=== PATIENT | female | born 1960 | race Caucasian/White ===

== ENCOUNTER 2017-10-20 11:36 | Emergency (ER) | payer OTHER ==
[2017-10-20 11:45] VITALS: BP 134/86; PULSE 79; TEMP 97.7; BMI 35.4
--- NOTE | 2017-10-20 12:39 | PDOC ---
History of Present Illness - General Chief Complaint: Injury Stated Complaint: RT ANKLE PAIN Time Seen by Provider: 10/20/17 12:23 History Source: Patient Exam Limitations: No Limitations - History of Present Illness Initial Comments: 10/20/17 13:05 Patient states woke up this morning with swelling and tenderness to her right foot. 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 Denies tripping, no twisting injuries. Has taken no medication for relief. Occurred: reports: this morning, yesterday Severity: reports: mild, moderate Pain Location: reports: lower extremity (right foot ) Method of Injury: Yes: unknown Modifying Factors: improves with: None Associated Symptoms (Fall): denies symptoms Past History - Travel Traveled outside of the country in the last 30 days: No Close contact w/someone who was outside of country & ill: No - Past Medical History Allergies/Adverse Reactions: Allergies Allergy/AdvReac Type Severity Reaction Status Date / Time No Known Allergies Allergy Verified 10/20/17 11:41 Home Medications: Ambulatory Orders Alprazolam [Xanax] 0.25 mg PO TID #7 tablet 10/31/12 Olmesartan Medoxomil [Benicar -] 20 mg PO DAILY 10/31/12 Naproxen [Naprosyn -] 500 mg PO BID PRN #14 tablet 11/19/13 Indomethacin [Indocin -] 50 mg PO TID #15 capsule 09/06/14 predniSONE [Deltasone -] 20 mg PO DAILY #18 tablet 09/06/14 Naproxen [Naprosyn -] 500 mg PO TID #30 tablet 10/20/17 Asthma: Yes COPD: No HTN: Yes - Surgical History Abdominal Surgery: Yes (TUBAL LIGATION) - Suicide/Smoking/Psychosocial Hx Smoking Status: No Smoking History: Never smoked Have you smoked in the past 12 months: No Number of Cigarettes Smoked Daily: 0 Information on smoking cessation initiated: No Hx Alcohol Use: No Drug/Substance Use Hx: No Substance Use Type: None Trauma Specific PMHX - Complaint Specific PMHX Back Injury: No Neck Injury: No Review of Systems - Review of Systems Able to Perform ROS?: Yes Is the patient limited Turkish proficient: Yes Constitutional: Yes: Symptoms Reported, See HPI, Malaise HEENTM: Yes: Symptoms Reported, See HPI Respiratory: No: Symptoms reported Musculoskeletal: Yes: Symptoms Reported, See HPI, Joint Pain, Joint Swelling Integumentary: Yes: Symptoms Reported, See HPI, Bruising All Other Systems: Reviewed and Negative *Physical Exam - Vital Signs Last Vital Signs Temp Pulse Resp BP Pulse Ox 97.7 F 79 16 134/86 100 10/20/17 11:41 10/20/17 11:41 10/20/17 11:41 10/20/17 11:41 10/20/17 11:41 - Physical Exam General Appearance: Yes: Nourished, Appropriately Dressed, Apparent Distress, Mild Distress HEENT: positive: JOHN, Normal ENT Inspection, TMs Normal, Pharynx Normal Neck: negative: Tender Extremity: positive: Normal Capillary Refill. negative: Normal Range of Motion (limited due to pain , good flexion and extension to toes, neurovascular intact. Has tenderness along the lateral aspect of right foot, but no point tenderness to medial or lateral malleolus, negative squeeze test. Ambulatory with mild limp.) Integumentary: positive: Normal Color, Warm Neurologic: positive: component prep operator II-XII NML intact, Fully Oriented, Alert, Normal Mood/ Affect, Normal Response, Motor Strength 5/ ED Treatment Course - RADIOLOGY Radiology Studies Ordered: Category Date Time Status ANKLE & FOOT-RIGHT* [RAD] Stat Radiology 10/20/17 12:28 Ordered Progress Note - Progress Note Progress Note: XRay negative for fx/Dx. Manuel and cast shoe applied to right foot. We'll treat with NSAIDs rest and follow up with Orth O as needed *DC/Admit/Observation/Transfer Diagnosis at time of Disposition: Right foot strain Qualifiers: Encounter type: initial encounter Qualified Code(s): S96.911A - Strain of unspecified muscle and tendon at ankle and foot level, right foot, initial encounter - Discharge Dispostion Disposition: HOME Condition at time of disposition: Stable Decision to Admit order: No - Prescriptions Prescriptions: Naproxen [Naprosyn -] 500 mg PO TID #30 tablet - Referrals Referrals: Rickey Sheppard MD [Primary Care Provider] - Mau Garcia MD [Staff Physician] - - Patient Instructions Printed Discharge Instructions: DI for Foot Pain Additional Instructions: Rest, ice to area on and off for 15 minutes 4-6 times a day Avoid heavy lifting or exercise until pain and swelling is resolved or until further directed Keep area highly elevated to reduce swelling Use splints/Manuel wrap as directed Followup with orthopedist in one to 2 days if not improving, if significantly improved may wait one week for followup with orthopedist May use ibuprofen 2-200 mg tablets every 6 hours as needed for pain - Post Discharge Activity Forms/Work/School Notes: Back to Work
== END 2017-10-20 13:10 | disposition home or self-care (01) ==
LOC: JERFT 11:36
DX: S96.811A Strain of other specified muscles and tendons at ankle and foot level, right foot, initial encounter (principal); X58.XXXA Exposure to other specified factors, initial encounter; Y93.89 Activity, other specified; Y92.89 Other specified places as the place of occurrence of the external cause; Y99.8 Other external cause status
CPT/HCPCS: 73610-TC-RT-FY; 73630-TC-RT-FY; 99281-25

== ENCOUNTER 2018-07-21 18:34 | Observation (INO) | payer OTHER ==
[2018-07-21] MEDS ORDERED: SODIUM CHLORIDE 1,000 ML IV SCH (19:00)
--- NOTE | 2018-07-21 19:01 | PDOC ---
Rapid Medical Evaluation Time Seen by Provider: 07/21/18 18:54 Medical Evaluation: Allergies Allergy/AdvReac Type Severity Reaction Status Date / Time No Known Allergies Allergy Verified 10/20/17 11:41 07/21/18 18:55 I have performed a brief in-person evaluation of this patient. The patient presents with a chief complaint of: L sided facial "numbbess" started at 5 pm Pertinent physical exam findings:no asymmetry I have ordered the following:CT head CBC, CMP, PT/INR, Troponin The patient will proceed to the ED for further evaluation. Discharge Disposition - Diagnosis Numbness - Referrals - Patient Instructions - Post Discharge Activity
--- NOTE | 2018-07-21 19:17 | PDOC ---
Attending Attestation - Resident Resident Name: PrincessDarin - ED Attending Attestation I have performed the following: I have examined & evaluated the patient, The case was reviewed & discussed with the resident, I agree w/resident's findings & plan - HPI HPI: 07/21/18 19:53 Pt has a sensation of formication on her face today; started this evening around 5-6PM and continued to tongue numbness. She states that she is sometimes not compliant with her BP meds (losartan 100; coreg 3.125 and chlorthalidone 25mg) Today however she did take all her meds. BP is slightly high on arrival. She has neck pain. - Physicial Exam PE: 07/22/18 19:50 Agree with resident exam. Pt has no neuro deficits on my exam. No pitting edema clear lungs and heart - Medical Decision Making 07/21/18 19:44 Patient Name: AUSTIN JOHNSON THIS IS A PRELIMINARY REPORT FROM IMAGING MANAGER ASSESSMENT DATE OF SERVICE: 2018-07-21 19:12:34 IMAGES: 133 EXAM: HEAD CT (STROKE) DATE OF EXAM: 2018-07-21 19:12:34 IMAGES: 133 EXAM: HEAD CT (STROKE) History: 57-year-old female rule out CVA/stroke Comparison: None Procedure: CT scan head, dated July 21, 2018 . Axial images obtained followed by coronal and sagittal reconstructions. Study performed unenhanced. Findings: Visualized portion of the paranasal sinuses, mastoid air cells and external ear canals are air filled. The ventricular system is of normal size shape and configuration. There is no evidence of an intra-or extra-axial mass lesion, mass-effect or bleed. Rueda-white differentiation is maintained. No hyperdense vessel sign identified. Corpus callosum and craniocervical junction normal in appearance. Impression: Normal CT scan of the head, unenhanced. Recommendation: If clinical concern for stroke persists, recommend MRI follow- up with diffusion weighted imaging. 07/21/18 19:52 163/80s on the right arml 164/80s on the left arm. However, pt is having neck pain; she complains of a feeling of tingling like "ants crawling on her face" left side of face today that didn't resolve. She was seated watching TV at the time; states that she came to the ER only after the numbness affected her entire tongue. 07/22/18 05:30 Pt vastly improved; she is sleeping comfortably. Heart Score/ECG Review - ECG Intrepretation Rhythm: Regular Rhythm - [place]: Normal - QRS Poor R Wave Progression: No Q Wave Present: No - ST and T Early Repolarization: No Non Specific ST-T Wave changes: Yes - ECG Impressions Normal ECG: Yes Non-specific ST Elevation: No Ischemic Changes: Yes (inferior flat T waves.)
--- NOTE | 2018-07-21 19:29 | PDOC ---
History of Present Illness - General Chief Complaint: CVA/TIA Stated Complaint: L SIDE FACE PAIN AND NUMBNESS Time Seen by Provider: 07/21/18 18:54 History Source: Patient Exam Limitations: No Limitations - History of Present Illness Initial Comments: 07/21/18 19:26 The patient is a 57F with a PMH of HTN and "heart problem" who presents to the ER with sudden onset onset L neck pain and L facial numbness and L leg weakness since 1700 this evening as she was watching TV. She denies any CP, SOB, other numbness, tingling, or weakness. She admits to mild blurry vision in her L eye. She states that she "feels shaky" and has never felt like this in the past. She denies taking any AC. Past History - Past Medical History Allergies/Adverse Reactions: Allergies Allergy/AdvReac Type Severity Reaction Status Date / Time No Known Allergies Allergy Verified 07/21/18 18:55 Home Medications: Ambulatory Orders Carvedilol [Coreg -] 3.125 mg PO BID 07/21/18 Chlorthalidone 25 mg PO DAILY 07/21/18 Cholecalciferol (Vitamin D3) [Vitamin D3 -] 1,000 unit PO DAILY 07/21/18 Losartan Potassium [Cozaar] 100 mg PO DAILY 07/21/18 Asthma: Yes COPD: No HTN: Yes - Surgical History Abdominal Surgery: Yes (TUBAL LIGATION) - Suicide/Smoking/Psychosocial Hx Smoking Status: No Smoking History: Unknown if ever smoked Have you smoked in the past 12 months: No Number of Cigarettes Smoked Daily: 0 Hx Alcohol Use: No Drug/Substance Use Hx: No Substance Use Type: None Review of Systems - Review of Systems Able to Perform ROS?: Yes Comments:: 07/21/18 20:52 GENERAL/CONSTITUTIONAL: No fever or chills. No weakness. HEAD, EYES, EARS, NOSE AND THROAT: No change in vision. No ear pain or discharge. No sore throat. CARDIOVASCULAR: No chest pain, palpitations, or lightheadedness. RESPIRATORY: No cough, wheezing, shortness of breath, or hemoptysis. GASTROINTESTINAL: No nausea, vomiting, diarrhea, constipation, or abdominal pain. GENITOURINARY: No dysuria, frequency, hematuria, or change in urination. MUSCULOSKELETAL: Positive for L neck pain. No joint or muscle swelling or pain. No back pain. SKIN: No rash or lesions. NEUROLOGIC: Positive for facial numbness and LLE weakness. No headache, tingling , or loss of consciousness. Is the patient limited Tongan proficient: No *Physical Exam - Vital Signs Last Vital Signs Temp Pulse Resp BP Pulse Ox 94 H 20 180/104 H 99 07/21/18 18:58 07/21/18 18:58 07/21/18 18:58 07/21/18 18:58 - Physical Exam Comments: 07/21/18 20:54 GENERAL: Well developed, well nourished. Awake and alert. No acute distress. HEENT: Normocephalic, atraumatic. Hearing grossly normal. Moist mucous membranes. PERRLA, EOMI. No conjunctival pallor. Sclera are non-icteric. NECK: Supple. Full ROM. No JVD. CARDIOVASCULAR: Regular rate and rhythm. No murmurs, rubs, or gallops. PULMONARY: No evidence of respiratory distress. Lungs clear to auscultation bilaterally. No wheezing, rales or rhonchi. ABDOMINAL: Soft. Non-tender. Non-distended. No rebound or guarding. GENITOURINARY: No CVA tenderness bilaterally. MUSCULOSKELETAL: Normal range of motion at all joints. No bony deformities or tenderness. EXTREMITIES: No cyanosis. No clubbing. No edema. No calf tenderness or swelling. SKIN: Warm and dry. Normal capillary refill. No rashes. No jaundice. NEUROLOGICAL: Alert, awake, appropriate. Cranial nerves 2-12 intact. Decreased sensation on L face in V2 and V3 distribution. No droop appreciated. L leg is 4/ 5 strength. Otherwise, no deficits to light touch and temperature in face, upper extremities and lower extremities. 5/5 strength in deltoids, biceps, triceps, quadriceps, hamstrings, and gastrocnemius. Normal speech. Gait is mildly ataxia. PSYCHIATRIC: Cooperative. Good eye contact. Appropriate mood and affect. Moderate Sedation - Procedure Monitoring Vital Signs: Procedure Monitoring Vital Signs Temperature Pulse Rate 94 H 07/21/18 18:58 Respiratory Rate 20 07/21/18 18:58 Blood Pressure 180/104 H 07/21/18 18:58 O2 Sat by Pulse Oximetry (%) 99 07/21/18 18:58 ED Treatment Course - LABORATORY CBC & Chemistry Diagram: 07/21/18 19:35 07/21/18 19:35 Medical Decision Making - Medical Decision Making 07/21/18 20:03 The patient is a 57F with a PMH of HTN and "irregular heart beat" not on AC who presents to the ER with acute onset neck pain and L facial numbness with L leg weakness concerning for vertebral artery dissection, hemorrhagic CVA, TIA. Initial CTH negative. CTA head and neck placed to evaluate for dissection and arterial patency. Pending labs and imaging. Pt stable, currently on monitor. EKG NSR, no afib or ischemic changes. 07/21/18 20:55 CTA pending. Pt had resolution of symptoms. 07/21/18 23:02 Radiologist, Dr. Yo, read a negative CTA but has issues with verbalizing a documentation. Will microblog for admission. Pt states that she feels her symptoms returning. Will d/w neurology. 07/21/18 23:29 Neurology advises to give asa for recurrent symptoms and keep pt mildly hypertensive. Pt endorsed to Dr. Naranjo for admission. *DC/Admit/Observation/Transfer Diagnosis at time of Disposition: Numbness, TIA (transient ischemic attack) - Discharge Dispostion Condition at time of disposition: Guarded Decision to Admit order: Yes - Referrals Referrals: Porter Tererll MD [Primary Care Provider] - - Patient Instructions - Post Discharge Activity
[2018-07-21] MEDS ORDERED: LOSARTAN POTASSIUM 50 MG TABLET (FP) PO ONE (19:51)
[2018-07-21] MEDS ORDERED: ACETAMINOPHEN 1000 MG/100 ML VIAL (NON FORMULARY) IVPB ONE (19:52)
[2018-07-21] MEDS ORDERED: ACETAMINOPHEN INJECTION 100 ML IVPB ONE (19:58)
[2018-07-21 20:06] LABS: INR 0.99 (0.83-1.09); PROTHROMBIN TIME (PATIENT) 11.7 SEC (9.7-13.0)
[2018-07-21 20:08] LABS: BASO % 0.3 % (0-2.0); EOS % 3.1 % (0-4.5); HEMATOCRIT 40.8 % (32.4-45.2); LYMPH % 18.6 % (8-40); MCH 32.6 pg (25.7-33.7); MCHC 34.3 g/dl (32.0-36.0); MEAN CELL VOLUME 95.1 fl (80-96); MONO % 7.9 % (3.8-10.2); NEUT % 70.1 % (42.8-82.8); PLATELET COUNT 191 K/MM3 (134-434); RBC 4.29 M/mm3 (3.60-5.2); WHITE BLOOD COUNT 8.5 K/mm3 (4.0-10.0)
[2018-07-21 20:16] LABS: ALBUMIN 3.9 g/dl (3.4-5.0); ALK PHOS 110 U/L (45-117); ANION GAP 4 MMOL/L (8-16); BILIRUBIN,TOTAL 0.3 mg/dL (0.2-1); BLOOD UREA NITROGEN 10 mg/dL (7-18); CALCIUM 8.8 mg/dL (8.5-10.1); CHLORIDE 108 mmol/L (98-107); CHOLESTEROL 188 mg/dL (50-200); CO2 28 mmol/L (21-32); CREATININE 0.9 mg/dL (0.55-1.3); GLUCOSE,RANDOM 134 mg/dL (74-106); HDL CHOLESTEROL 69 mg/dL (40-60); POTASSIUM 3.9 mmol/L (3.5-5.1); SGOT/AST 21 U/L (15-37); SGPT/ALT 26 U/L (13-61); SODIUM 141 mmol/L (136-145); TRIGLYCERIDES 152 mg/dL (0-150)
[2018-07-21 22:07] LABS: URINE APPEARANCE CLEAR; URINE BILIRUBIN NEGATIVE (<2.0 mg/dL); URINE COLOR COLORLESS; URINE GLUCOSE (UA) NEGATIVE (NEGATIVE); URINE KETONE NEGATIVE (NEGATIVE); URINE LEUK ESTERASE NEGATIVE (NEGATIVE); URINE NITRITE NEGATIVE (NEGATIVE); URINE PROTEIN NEGATIVE (NEGATIVE); URINE UROBILINOGEN NEGATIVE mg/dL (0.2-1.0)
[2018-07-21 22:22] LABS: EPI CELLS RARE /HPF (FEW)
[2018-07-21] MEDS ORDERED: ASPIRIN COATED 81 MG TABLET.EC PO ONE (23:15)
[2018-07-21] MEDS ORDERED: ASPIRIN 325 MG TABLET ONE (23:22)
--- NOTE | 2018-07-22 00:54 | HP ---
<Manan Naranjo - Last Filed: 07/22/18 04:29> CHIEF COMPLAINT: L Leg and arm weakness, Left facial paresthesias/numbness PCP: Dr. Porter Terrell HISTORY OF PRESENT ILLNESS: 57 yo female with PMH HTN and a "heart rhythm condition" for which she does not know the name (not on AC) admitted following an acute onset of Left face paresthesia, left neck pain, left arm weakness and left leg weakness. She states she has never had symptoms like this in the past. She notes that earlier today she had an episode of dizziness which she states is very normal for her if she does not eat breakfast which she did not eat this morning. She states she was watching tv around 5 pm when the symptoms started. She first noticed pain in her face which she described as "many needles" and then noticed some weakness in her left arm and left leg. She states that now in the ER she is still having some weakness in her left arm but the leg weakness has completely resolved. She is also still endorsing the facial paresthesia and numbness though much improved from earlier. She denies any fevers, chills, n/v/d. ER course was notable for: (1) CT head negative, CTA brain and neck unremarkable (2) Neurology consulted, ASA, will see in AM (3) HTN to 180/104, given Losartan 50 mg PO, down to 158/66 Recent Travel: none PAST MEDICAL HISTORY: HTN and possibly paroxysmal a-fib? PAST SURGICAL HISTORY: Total Hysterectomy Social History: Smoking: Denies Alcohol: 6 pack or 2 of beer on the weekend, denies use during the week, counseled on alcohol use Drugs: Denies Family History: Allergies No Known Allergies Allergy (Verified 07/21/18 18:55) HOME MEDICATIONS: Home Medications Medication Instructions Recorded Carvedilol [Coreg -] 3.125 mg PO BID 07/21/18 Chlorthalidone 25 mg PO DAILY 07/21/18 Cholecalciferol (Vitamin D3) 1,000 unit PO DAILY 07/21/18 [Vitamin D3 -] Losartan Potassium [Cozaar] 100 mg PO DAILY 07/21/18 REVIEW OF SYSTEMS CONSTITUTIONAL: Absent: fever, chills, diaphoresis, generalized weakness, malaise, loss of appetite, weight change HEENT: Absent: rhinorrhea, nasal congestion, throat pain, throat swelling, difficulty swallowing, mouth swelling, ear pain, eye pain, visual changes CARDIOVASCULAR: Absent: chest pain, syncope, palpitations, irregular heart rate, lightheadedness , peripheral edema RESPIRATORY: Absent: cough, shortness of breath, dyspnea with exertion, orthopnea, wheezing, stridor, hemoptysis GASTROINTESTINAL: Absent: abdominal pain, abdominal distension, nausea, vomiting, diarrhea, constipation, melena, hematochezia GENITOURINARY: Absent: dysuria, frequency, urgency, hesitancy, hematuria, flank pain, genital pain MUSCULOSKELETAL: neck pain Absent: myalgia, arthralgia, joint swelling, back pain, SKIN: Absent: rash, itching, pallor HEMATOLOGIC/IMMUNOLOGIC: Absent: easy bleeding, easy bruising, lymphadenopathy, frequent infections ENDOCRINE: Absent: unexplained weight gain, unexplained weight loss, heat intolerance, cold intolerance NEUROLOGIC: focal weakness or paresthesias Absent: headache, , dizziness, unsteady gait, seizure, mental status changes, bladder or bowel incontinence PSYCHIATRIC: Absent: anxiety, depression, suicidal or homicidal ideation, hallucinations. PHYSICAL EXAMINATION Vital Signs - 24 hr 07/21/18 07/21/18 18:58 21:28 Temperature 98.5 F Pulse Rate 94 H Pulse Rate [ 88 Right Radial] Respiratory 20 19 Rate Blood Pressure 180/104 H Blood Pressure 158/66 [Left Arm] O2 Sat by Pulse 99 Oximetry (%) Gen: A&O, no acute distress HEENT: moist mucus membranes, no exudate Neck: supple, no lymphadenopathy, normal ROM Heart: RRR, no murmurs or rubs Lungs: CTA b/l without any wheezes or rales Abdomen: Soft nontender, normoactive bowel sounds Neuro: decreased sensation in V2 of trigeminal region, otherwise CN II-XII in tact, 5/5 strength and sensation throughout Laboratory Results - last 24 hr 07/21/18 07/21/18 07/21/18 19:35 19:35 19:35 WBC 8.5 RBC 4.29 Hgb 14.0 Hct 40.8 MCV 95.1 MCH 32.6 MCHC 34.3 RDW 14.0 Plt Count 191 MPV 10.0 Absolute Neuts (auto) 6.0 Neutrophils % 70.1 Lymphocytes % 18.6 Monocytes % 7.9 Eosinophils % 3.1 Basophils % 0.3 Nucleated RBC % 0 PT with INR 11.70 INR 0.99 Sodium 141 Potassium 3.9 Chloride 108 H Carbon Dioxide 28 Anion Gap 4 L BUN 10 Creatinine 0.9 Creat Clearance w eGFR > 60 Random Glucose 134 H Calcium 8.8 Total Bilirubin 0.3 AST 21 ALT 26 Alkaline Phosphatase 110 Creatine Kinase 92 Troponin I < 0.02 Total Protein 7.0 Albumin 3.9 Triglycerides 152 H Cholesterol 188 Total LDL Cholesterol 99 HDL Cholesterol 69 H Urine Color Urine Appearance Urine pH Ur Specific [place] Urine Protein Urine Glucose (UA) Urine Ketones Urine Blood Urine Nitrite Urine Bilirubin Urine Urobilinogen Ur Leukocyte Esterase Urine WBC (Auto) Urine RBC (Auto) Ur Epithelial Cells Blood Type Antibody Screen 07/21/18 07/21/18 19:35 21:22 WBC RBC Hgb Hct MCV MCH MCHC RDW Plt Count MPV Absolute Neuts (auto) Neutrophils % Lymphocytes % Monocytes % Eosinophils % Basophils % Nucleated RBC % PT with INR INR Sodium Potassium Chloride Carbon Dioxide Anion Gap BUN Creatinine Creat Clearance w eGFR Random Glucose Calcium Total Bilirubin AST ALT Alkaline Phosphatase Creatine Kinase Troponin I Total Protein Albumin Triglycerides Cholesterol Total LDL Cholesterol HDL Cholesterol Urine Color Colorless Urine Appearance Clear Urine pH 7.0 Ur Specific [place] 1.047 H Urine Protein Negative Urine Glucose (UA) Negative Urine Ketones Negative Urine Blood 1+ H Urine Nitrite Negative Urine Bilirubin Negative Urine Urobilinogen Negative Ur Leukocyte Esterase Negative Urine WBC (Auto) 1 Urine RBC (Auto) 2 Ur Epithelial Cells Rare Blood Type O POSITIVE Antibody Screen Negative ASSESSMENT/PLAN: 57 yo female with PMH HTN and a "heart rhythm condition" for which she does not know the name (not on AC) admitted following an acute onset of Left face paresthesia, left neck pain, left arm weakness and left leg weakness TIA vs CVA -CT head and CTA brain and neck noted -Neurology consulted, full dose ASA and will see in AM -Passed bedside swallow eval -Carotid duplex -ECHO -Telemetry monitoring -ASCVD risk score 3.5% for event in next 10 years, will hold statin for now -B12, ESR, CRP, A1C pending -MRI Brain -Physical Therapy Eval HTN -Continue home Coreg and Losartan -Hold chlorthalidone as to allow some permissive hypertension Abnormal heart rhythm -ECG unchanged from previous in 2014, normal sinus rhythm -suspect possible paroxysmal a-fib, though not on AC -follow echo and tele monitoring Prophylaxis -Early ambulation and SCDs for now -chemical prophylaxis if pt remains in hospital > 48 hours FEN -none -monitor and replete -Na controlled diet Dispo -Telemetry Obs Visit type - Emergency Visit Emergency Visit: Yes ED Registration Date: 07/21/18 Care time: The patient presented to the Emergency Department on the above date and was hospitalized for further evaluation of their emergent condition. - New Patient This patient is new to me today: Yes Date on this admission: 07/22/18 - Critical Care Critical Care patient: No <Rylan Robles - Last Filed: 08/21/18 20:29> Seen and examined; agree with the above aside from what is supplemented by myself in my own documentation. Reviewed all [place] parts of history and exam with resident team and verified independently.
--- NOTE | 2018-07-22 03:04 | PN ---
Teaching Attending Note Name of Resident: Manan Naranjo ATTENDING PHYSICIAN STATEMENT I saw and evaluated the patient. I reviewed the resident's note and discussed the case with the resident. I agree with the resident's findings and plan as documented. SUBJECTIVE: Seen and examined; please see resident note for further historical documentation. Briefly, this is a 57 y/o female with a PMH significant for HTN , stated irregular HR but denies AFib etc. and we do not have old records. She presents to the ER with a CC of LUE and LLE weakness which has resolved and L- facial parasthesias which have improved but not completely resolved at the time of presentation. NIHSS to our assessment is 0. CTA negative for arterial dissection, CT negative for any acute intracranial issues. In between the resident exam and my exam, the only area left with any parasthesias is the medial segment of V2. She has never had these sx before, nothing made them better or worse. Time of onset was 5PM. ER staff talked to communications editor neurologist who recommended keeping BP on the higher side (presented in HTN urgency, she has occasional noncompliance with home meds) 10 sys ROS done and negative aside from HPI PMH, PSH, Social hx, Family hx reviewed Medication reconciliation pending OBJECTIVE: VS, labs, imaging reviewed NAD, AAO, resting in bed NIHSS 0; 5/5 strength with full ROM in all extremities. CN2-12 wnl aside from the issue with some parasthesias to V2 (can still feel fine touch medial side b/ l but it becomes different in sensation on the L than R) RRR s1/2 no mgr Lungs CTAB, w/ sym exp Normal mood, appropriate behavior EKG reviewed CT head shows no acute intracranial pathology with no definite interval change compared to 2013 study. Labs show unremarkable CBC, chemistry. HDL elevated with high TG and LDL near 100. ASSESSMENT AND PLAN: Patient presents with L-facial numbness/tingling which has nearly resolved and LUE/LLE weakness that has resolved completely. NIHSS 0 at this juncture. Admitting to telemetry with a neurology consultation. 1) R/O CVA v. TIA -Place on telemetry, neuro checks and seizure precuations -ASA 81mg PO QD; calculate ASCVD score and initiate statin therapy as dictated -CT head reviewed; final reports CTA head and neck pending. MRI, carotid dopplers, echo pending -Swallow evaluation, consult PT. -Consider other items on the ddx such as neuropathy, etc. Checking B12, ESR, CRP, A1c 2) HTN Urgency -Sx persisted independently of her HTN as they were resolved by the time she got to the hospital. She has intermediate compliance with her home meds which likely caused this. She is hemodynamically stable with improved BP at this point. Plan to continue 2/3 of her home medications (losartan 100, coreg 3.125 ; holding chlorthaladone) and to monitor, titrating as needed and using PRN hydralazine. Can let pressures run slightly higher given the presenting issue as per neurology so restart chlorthaladone when OK with their service 3) History of stated irregular HR -Continue coreg; obtain OP records and monitor tele. Followup echo. Stable at this juncture. FENA -PO fluids -PRN replete -Swallow eval bedside prior to feeding -As tolerated; PT consulted Full Code
[2018-07-22 05:32] LABS: HEMATOCRIT 38.8 % (32.4-45.2); MCH 31.8 pg (25.7-33.7); MCHC 33.5 g/dl (32.0-36.0); MEAN CELL VOLUME 94.8 fl (80-96); MEAN PLT VOLUME 9.6 fl (7.5-11.1); PLATELET COUNT 171 K/MM3 (134-434); RDW 13.9 % (11.6-15.6); WHITE BLOOD COUNT 5.1 K/mm3 (4.0-10.0)
--- NOTE | 2018-07-22 09:11 | CON.NEURO ---
Consult - Alcohol/Substance Use Hx Alcohol Use: No - Smoking History Smoking history: Unknown if ever smoked Have you smoked in the past 12 months: No Aproximately how many cigarettes per day: 0 Home Medications - Allergies Allergies/Adverse Reactions: Allergies Allergy/AdvReac Type Severity Reaction Status Date / Time No Known Allergies Allergy Verified 07/21/18 18:55 - Home Medications Home Medications: Ambulatory Orders Carvedilol [Coreg -] 3.125 mg PO BID 07/21/18 Chlorthalidone 25 mg PO DAILY 07/21/18 Cholecalciferol (Vitamin D3) [Vitamin D3 -] 1,000 unit PO DAILY 07/21/18 Losartan Potassium [Cozaar] 100 mg PO DAILY 07/21/18 Physical Exam-Neuro Vital Signs: Vital Signs Temperature 97.7 F 07/22/18 08:20 Pulse Rate 56 L 07/22/18 08:20 Respiratory Rate 18 07/22/18 08:20 Blood Pressure 142/78 07/22/18 08:20 O2 Sat by Pulse Oximetry (%) 100 07/22/18 07:07 Labs: CBC, BMP 07/22/18 05:16 07/21/18 19:35 INR, PTT INR 0.99 (0.83-1.09) 07/21/18 19:35 Assessment/Plan cc Transient left face numbness and left leg weakness HPI 57 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 She has sudden onset vertigo/dizziness feeling and had tingling sensation on face and leg weakness. She also felt neck pain. Her symptoms partially resolved initially and than came back. Than she has symptoms resolved this morning. She still feel left face numbness. Her initial ct head and cta neck and brain is normal. (3) HTN to 180/104, given Losartan 50 mg PO, down to 158/66 PAST MEDICAL HISTORY: HTN and possibly paroxysmal a-fib? PAST SURGICAL HISTORY: Total Hysterectomy Social History: Smoking: Denies Alcohol: 6 pack or 2 of beer on the weekend, denies use during the week, counseled on alcohol use Drugs: Denies No Known Allergies Allergy (Verified 07/21/18 18:55) HOME MEDICATIONS: Home Medications Medication Instructions Recorded Carvedilol [Coreg -] 3.125 mg PO BID 07/21/18 Chlorthalidone 25 mg PO DAILY 07/21/18 Cholecalciferol (Vitamin D3) 1,000 unit PO DAILY 07/21/18 [Vitamin D3 -] Losartan Potassium [Cozaar] 100 mg PO DAILY 07/21/18 ROS,FH SH reviewed in chart NEUROLOGICAL EXAMINATION Alert oriented x 3, speech is normal, no neck stiffness no sensory loss on left face , no face asymmetry, eomi, pupils reactive, vf normal by confrontation. motor 5/5 all ext sensation is normal reflex are grade 2 ct head is normal cta of neck and cts of brain is unremarkable Assessment 57 year old female history of HTN, ? paroxysmal atrial fibrillation. Patient has symptoms resolved, she was not on aspirin and statin . She has normal CTA, NO LVO. Most likley She has TIA. Plan: Continue aspirin and add statin - mri of brain - cardiac monitoring for paroxysmal atrial fibrillation and possible cardiolgy consult Thanking you so much
[2018-07-22] MEDS: CARVEDILOL 3.125 MG TABLET (FP) PO SCH ×2 (09:43→21:42)
[2018-07-22] MEDS: CHOLECALCIFEROL (VITAMIN D3) 1,000 UNIT TABLET (FP) PO SCH (09:43)
[2018-07-22] MEDS: ASPIRIN COATED 81 MG TABLET.EC PO SCH (09:43)
[2018-07-22] MEDS: LOSARTAN POTASSIUM 50 MG TABLET (FP) PO SCH (09:43)
--- NOTE | 2018-07-22 10:48 | PN ---
Progress Note (short form) - Note Progress Note: continues to have L lower face parathesia. +generalized weakness. vertiginous symptoms have resolved. denies Cp, SOB, fever, chills, N/V/C/D Current Medications Generic Name Dose Route Start Last Admin Trade Name Sue PRN Reason Stop Dose Admin Aspirin 81 mg 07/22/18 10:00 07/22/18 09:43 Ecotrin - PO 81 mg DAILY CHACHO Administration Atorvastatin Calcium 40 mg 07/22/18 22:00 Lipitor - PO HS CHACHO Carvedilol 3.125 mg 07/22/18 10:00 07/22/18 09:43 Coreg - PO 3.125 mg BID CHACHO Administration Cholecalciferol 1,000 unit 07/22/18 10:00 07/22/18 09:43 Vitamin D3 - PO 1,000 unit DAILY CHACHO Administration Losartan Potassium 100 mg 07/22/18 10:00 07/22/18 09:43 Cozaar - PO 100 mg DAILY CHACHO Administration Last Vital Signs Temp Pulse Resp BP Pulse Ox 97.7 F 56 L 18 142/78 100 07/22/18 08:20 07/22/18 08:20 07/22/18 08:20 07/22/18 08:20 07/22/18 07:07 General NAD CV S1 S2 +murmur Lungs CTA B/L no wheezing/rales/rhonchi Neuro decreased sensation bottom half of L face. motor intact. rest of CN intact , negative pronator drift, strength and sensation grossly intact in all 4 extremities. negative dysdakinesia and finger to nose. gait testing deferred CBCD WBC 5.1 K/mm3 (4.0-10.0) 07/22/18 05:16 RBC 4.10 M/mm3 (3.60-5.2) 07/22/18 05:16 Hgb 13.0 GM/dL (10.7-15.3) 07/22/18 05:16 Hct 38.8 % (32.4-45.2) 07/22/18 05:16 MCV 94.8 fl (80-96) 07/22/18 05:16 MCHC 33.5 g/dl (32.0-36.0) 07/22/18 05:16 RDW 13.9 % (11.6-15.6) 07/22/18 05:16 Plt Count 171 K/MM3 (134-434) 07/22/18 05:16 MPV 9.6 fl (7.5-11.1) 07/22/18 05:16 CMP Sodium 142 mmol/L (136-145) 07/22/18 05:16 Potassium 4.5 mmol/L (3.5-5.1) 07/22/18 05:16 Chloride 111 mmol/L (98-107) H 07/22/18 05:16 Carbon Dioxide 22 mmol/L (21-32) 07/22/18 05:16 Anion Gap 9 MMOL/L (8-16) 07/22/18 05:16 BUN 11 mg/dL (7-18) 07/22/18 05:16 Creatinine 0.6 mg/dL (0.55-1.3) 07/22/18 05:16 Creat Clearance w eGFR > 60 (>60) 07/22/18 05:16 Calcium 9.1 mg/dL (8.5-10.1) 07/22/18 05:16 Total Bilirubin 0.3 mg/dL (0.2-1) 07/21/18 19:35 AST 21 U/L (15-37) 07/21/18 19:35 ALT 26 U/L (13-61) 07/21/18 19:35 Alkaline Phosphatase 110 U/L (45-117) 07/21/18 19:35 Total Protein 7.0 g/dl (6.4-8.2) 07/21/18 19:35 Albumin 3.9 g/dl (3.4-5.0) 07/21/18 19:35 A/P 57yo F wtih PMH HTN and some arrhythmia presented to the ER with vertigo like symptoms and facial numbness 1. R/o CVA- facial numbness has persisted. check MRI, carotid doppler and echo. Neuro eval. lipid panel reviewed. started on asa and statin. PT eval. 2. HTN urgency- 180/104. now improved. will need tighter BP control. diuretic on hold. consider starting 2nd agent 3. unknown arrhythmia- was placed on coreg but only taking it 1x/day. will monitor on tele. obtain records from chronic disease manager. ([facility]) 4. +murmur- heard on exam. states she thinks she was told she had one in the past. check echo 5. DVT ppx- EAM 6. case d/w daughter present at bedside. all questions answered. verbalized understanding and agreement with plan Visit type - Emergency Visit Emergency Visit: Yes ED Registration Date: 07/21/18 Care time: The patient presented to the Emergency Department on the above date and was hospitalized for further evaluation of their emergent condition. - New Patient This patient is new to me today: Yes Date on this admission: 07/22/18 - Critical Care Critical Care patient: No - Discharge Referral Referred to [facility] Med P.C.: No
[2018-07-22 11:09] LABS: ANION GAP 9 MMOL/L (8-16); BLOOD UREA NITROGEN 11 mg/dL (7-18); CALCIUM 9.1 mg/dL (8.5-10.1); CHLORIDE 111 mmol/L (98-107); CO2 22 mmol/L (21-32); CREATININE 0.6 mg/dL (0.55-1.3); GLUCOSE,RANDOM 111 mg/dL (74-106); MAGNESIUM 2.2 mg/dL (1.8-2.4); PHOSPHOROUS 4.7 mg/dL (2.5-4.9); POTASSIUM 4.5 mmol/L (3.5-5.1); SODIUM 142 mmol/L (136-145)
--- NOTE | 2018-07-22 14:41 | EKG ---
Test Reason : Blood Pressure : / mmHG Vent. Rate : 088 BPM Atrial Rate : 088 BPM P-R Int : 166 ms QRS Dur : 084 ms QT Int : 358 ms P-R-T Axes : 034 061 052 degrees QTc Int : 433 ms POOR DATA QUALITY, INTERPRETATION MAY BE ADVERSELY AFFECTED NORMAL SINUS RHYTHM NORMAL ECG WHEN COMPARED WITH ECG OF 06-SEP-2014 19:34, VENT. RATE HAS INCREASED BY 29 BPM Confirmed by Chris Wills MD ([id number]) on 07/22/2018 2:40:49 PM Referred By: Confirmed By:Chris Wills MD
[2018-07-22 16:18] VITALS: BMI 38.0
[2018-07-22] MEDS: ATORVASTATIN CA 40 MG TABLET (FP) PO SCH (21:42)
[2018-07-23] MEDS: CHOLECALCIFEROL (VITAMIN D3) 1,000 UNIT TABLET (FP) PO SCH (10:09)
[2018-07-23] MEDS: ASPIRIN COATED 81 MG TABLET.EC PO SCH (10:09)
[2018-07-23] MEDS: CARVEDILOL 3.125 MG TABLET (FP) PO SCH ×2 (10:09→22:17)
[2018-07-23] MEDS: LOSARTAN POTASSIUM 50 MG TABLET (FP) PO SCH (10:09)
--- NOTE | 2018-07-23 10:25 | PN ---
Physical Exam: SUBJECTIVE: No acute events overnight. Pt's residual L-sided CN V2 sensation changes resolved. Pt reports walking to the bathroom without difficulty. Denies any parasthesias, weakness, cP/discomfort, SOB, headaches, f/c/n/v/d/cons. OBJECTIVE: Vital Signs Period Temp Pulse Resp BP Sys/Amaya Pulse Ox Last 24 Hr 97.8 F-98.4 F 72-78 18-18 114-150/50-90 96-98 GENERAL: NAD, awake, alert, and fully oriented, laying in bed HEENT: NC/AT, EOMI, JARAD, sclera anicteric, facial symmetry at rest, MMM NECK: Soft, no TTP along C-spine, no lymphadenopathy LUNGS: CTA bilaterally, no wheezes, no crackles, no accessory muscle use. HEART: RRR, S1, S2 with 2/6 systolic murmur appreciated ABDOMEN: Soft, NT/ND, normoactive bowel sounds, no guarding EXTREMITIES: 2+ DP pulses, warm, well-perfused, no edema. NEUROLOGICAL: oiler bander II through XII grossly intact including facial sensation. Strength 5/5 in shoulder shrug, UExt and LExt regions. Sensation intact throughout. Gait normal. Normal speech. No dysmetria or dysdiadocokinesia. Patellar reflex 2/4 PSYCH: Normal mood, normal affect. SKIN: Warm, dry, no rashes or lesions noted Laboratory Results - last 24 hr 07/22/18 07/22/18 05:16 07:45 Sodium 142 Cancelled Potassium 4.5 Cancelled Chloride 111 H Cancelled Carbon Dioxide 22 Cancelled Anion Gap 9 Cancelled BUN 11 Cancelled Creatinine 0.6 Cancelled Creat Clearance w eGFR > 60 Cancelled Random Glucose 111 H Cancelled Calcium 9.1 Cancelled Phosphorus 4.7 Cancelled Magnesium 2.2 Cancelled C-Reactive Protein 1.0 H Vitamin B12 393 Active Medications Generic Name Dose Route Start Last Admin Trade Name Sue PRN Reason Stop Dose Admin Aspirin 81 mg 07/22/18 10:00 07/23/18 10:09 Ecotrin - PO 81 mg DAILY CHACHO Administration Atorvastatin Calcium 40 mg 07/22/18 22:00 07/22/18 21:42 Lipitor - PO 40 mg HS CHACHO Administration Carvedilol 3.125 mg 07/22/18 10:00 07/23/18 10:09 Coreg - PO 3.125 mg BID CHACHO Administration Cholecalciferol 1,000 unit 07/22/18 10:00 07/23/18 10:09 Vitamin D3 - PO 1,000 unit DAILY CHACHO Administration Losartan Potassium 100 mg 07/22/18 10:00 07/23/18 10:09 Cozaar - PO 100 mg DAILY CHACHO Administration ASSESSMENT/PLAN: TIA; r/o CVA HTN Urgency (resolved) ? Arrythmia New systolic murmur --Symptoms resolved currently --MRI to be done today --Neurology on board; appreciated recommendations --Continue ASA 81mg qdaily --Continue Lipitor 40mg HS --Physical therapy eval noted --BP controlled currently (AM reading 132/70) --Continue Cozaar 100mg qDaily --Low threshold to place home or decreased dose of Chlorathalidone back on schedule --Monitor BP --Continue Coreg 3.125mg BID PO for now --Echocardiogram ordered FEN: Fluids: Encourage PO Electrolyte abnormalities: Previously normalized; no labs for tomorrow Nutrition: Sodium controlled PPX: DVT - Early ambulation; low risk Dispo: Continue tele monitoring; MRI and echocardiogram. Likely d/c with tests allowing tomorrow GOC: Full code Case discussed with Dr. Cole and Dr. Laura Richards, - IM PGY-2 Visit type - Emergency Visit Emergency Visit: Yes ED Registration Date: 07/21/18 Care time: The patient presented to the Emergency Department on the above date and was hospitalized for further evaluation of their emergent condition. - New Patient This patient is new to me today: Yes Date on this admission: 07/23/18 - Critical Care Critical Care patient: No
--- NOTE | 2018-07-23 10:50 | PN ---
Teaching Attending Note Name of Resident: Michael Richards ATTENDING PHYSICIAN STATEMENT I saw and evaluated the patient. I reviewed the resident's note and discussed the case with the resident. I agree with the resident's findings and plan as documented. SUBJECTIVE:facial numbness resolved. denies CP, SOB, fever, chills, N/V/C/D OBJECTIVE: Last Vital Signs Temp Pulse Resp BP Pulse Ox 98.2 F 78 18 150/90 98 07/23/18 09:00 07/23/18 09:00 07/23/18 09:00 07/23/18 09:00 07/23/18 08:00 General NAD Neuro CN II -XII grossly intact, ASSESSMENT AND PLAN: 57yo F wtih PMH HTN and some arrhythmia presented to the ER with vertigo like symptoms and facial numbness 1. R/o CVA- symptoms have resolved. awaiting MRI and echo. rest of workup negative. no events on monitor. neuro on board. asa and statin. PT eval. 2. HTN urgency- 180/104. now improved. will need tighter BP control. diuretic on hold. consider starting 2nd agent 3. unknown arrhythmia- was placed on coreg but only taking it 1x/day. will monitor on tele. obtain records from geophysical prospecting surveyor. ([facility]) 4. +murmur- heard on exam. states she thinks she was told she had one in the past. check echo 5. DVT ppx- EAM 6. anticipate d/c in next 24H pending results
[2018-07-23] MEDS ORDERED: LORazepam 2 MG/ML SDV VIAL IVPUSH SCH (11:16)
--- NOTE | 2018-07-23 11:35 | PN ---
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 She has sudden onset vertigo/dizziness feeling and had tingling sensation on face and leg weakness. She also felt neck pain. Her symptoms partially resolved initially and than came back. Than she has symptoms resolved this morning. She still feel left face numbness. Her initial ct head and cta neck and brain is normal. Patient is feeling better, and carotid ultrasound is normal. Her symptoms resolved and mri of brain is pending. NEUROLOGICAL EXAMINATION Alert oriented x 3, speech is normal, no neck stiffness no sensory loss on left face , no face asymmetry, eomi, pupils reactive, vf normal by confrontation. motor 5/5 all ext sensation is normal reflex are grade 2 ct head is normal cta of neck and cts of brain is unremarkable Assessment 57 year old female history of HTN, ? paroxysmal atrial fibrillation. Patient has symptoms resolved, she was not on aspirin and statin . She has normal CTA, NO LVO. Most likley She has TIA. Plan: mri of brain is pending - continue aspirin and statin - follow up outpatient. Thanking you so much
[2018-07-23] MEDS: ATORVASTATIN CA 40 MG TABLET (FP) PO SCH (22:17)
[2018-07-24] MEDS ORDERED: CHLORTHALIDONE 25 MG TABLET PO SCH (10:00)
--- NOTE | 2018-07-24 10:05 | PN ---
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 She has sudden onset vertigo/dizziness feeling and had tingling sensation on face and leg weakness. She also felt neck pain. Her symptoms partially resolved initially and than came back. Than she has symptoms resolved this morning. She still feel left face numbness. Her initial ct head and cta neck and brain is normal. Patient is feeling better, and carotid ultrasound is normal. Her symptoms resolved and mri of brain is pending. NEUROLOGICAL EXAMINATION Alert oriented x 3, speech is normal, no neck stiffness no sensory loss on left face , no face asymmetry, eomi, pupils reactive, vf normal by confrontation. motor 5/5 all ext sensation is normal reflex are grade 2 ct head is normal cta of neck and cts of brain is unremarkable Assessment 57 year old female history of HTN, ? paroxysmal atrial fibrillation. Patient has symptoms resolved, she was not on aspirin and statin . She has normal CTA, NO LVO. Most likley She has TIA. symptoms resolved and waiting for mri Plan: mri of brain is pending, once mri of brain is done , she should be discharged from neuro point of view. - continue aspirin and statin - follow up outpatient. Thanking you so much
[2018-07-24] MEDS: CARVEDILOL 3.125 MG TABLET (FP) PO SCH (10:54)
[2018-07-24] MEDS: ASPIRIN COATED 81 MG TABLET.EC PO SCH (10:55)
[2018-07-24] MEDS: LOSARTAN POTASSIUM 50 MG TABLET (FP) PO SCH (10:55)
[2018-07-24] MEDS: CHOLECALCIFEROL (VITAMIN D3) 1,000 UNIT TABLET (FP) PO SCH (10:56)
[2018-07-24] MEDS ORDERED: LORazepam 2 MG/ML SDV VIAL IVPUSH SCH (12:15)
--- NOTE | 2018-07-24 13:09 | ECHO ---
Name: AUSTIN JOHNSON Exam:Adult Echocardiogram Study Date: 07/24/2018 11:05 AM Age: 57 yrs Reason For Study: TIA VS CVA Height: 63 in Weight: 210 lb BSA: 2.0 m2 MMode/2D Measurements & Calculations IVSd: 1.3 cm LA dimension: 3.5 cm LVIDd: 3.6 cm ACS: 2.0 cm LVIDs: 2.6 cm LVPWd: 1.3 cm EDV(Teich): 53.1 ml LVOT diam: 1.9 cm ESV(Teich): 24.9 ml Doppler Measurements & Calculations MV E max radha: 76.5 cm/sec TV V2 max: 243.6 cm/sec MV A max radha: 86.9 cm/sec TV max P.8 mmHg MV E/A: 0.88 TV V2 mean: 179.4 cm/sec TV mean P.8 mmHg TV V2 VTI: 73.0 cm Procedure A complete two-dimensional transthoracic echocardiogram was performed (2D, M-mode, Doppler and color flow Doppler). Technically limites study. Left Ventricle The left ventricle is normal in size. There is mild concentric left ventricular hypertrophy. Left lilia tricular systolic function is normal. Ejection Fraction = 55-60%. No regional wall motion abnormalities noted. Right Ventricle The right ventricle is normal size. The right ventricular systolic function is normal. Atria The left atrial size is normal. Right atrial size is normal. Mitral Valve There is mild mitral valve thickening. There is mild mitral annular calcification. There is no mitral regurgitation noted. Tricuspid Valve The tricuspid valve is normal in structure and function. Pulmonary artery systolic pressure is at jessica st 30 mmHg if RA pressure is assumed 3 mmHg. Aortic Valve There is mild aortic sclerosis.;. No aortic regurgitation is present. Pulmonic Valve The pulmonic valve is not well visualized. Mild pulmonic valvular regurgitation. Great Vessels The aortic root is normal size. Pericardium/Pleura There is no pericardial effusion. Interpretation Summary Technically limites study The left ventricle is normal in size. There is mild concentric left ventricular hypertrophy. Left ventricular systolic function is normal. No regional wall motion abnormalities noted. Ejection Fraction = 55-60%. The right ventricular systolic function is normal. The left atrial size is normal. Right atrial size is normal. There is mild mitral valve thickening. There is mild mitral annular calcification. There is no mitral regurgitation noted. Pulmonary artery systolic pressure is at least 30 mmHg if RA pressure is assumed 3 mmHg There is mild aortic sclerosis. Mild pulmonic valvular regurgitation. There is no pericardial effusion. Previous study is not available for comparison Stanley Graf MD 07/24/2018 01:08 PM
--- NOTE | 2018-07-24 13:17 | PN ---
Teaching Attending Note Name of Resident: Chris Garay ATTENDING PHYSICIAN STATEMENT I saw and evaluated the patient. I reviewed the resident's note and discussed the case with the resident. I agree with the resident's findings and plan as documented. SUBJECTIVE:asymptomatic. denies CP, SOB, fever, chills, numbness/tingling OBJECTIVE: Last Vital Signs Temp Pulse Resp BP Pulse Ox 98 F 71 18 138/68 99 07/24/18 09:00 07/24/18 09:00 07/24/18 09:00 07/24/18 09:00 07/24/18 04:00 General NAD ASSESSMENT AND PLAN: 57yo F wtih PMH HTN and some arrhythmia presented to the ER with vertigo like symptoms and facial numbness 1. R/o CVA- symptoms have resolved. unable to tolerate MRI yesterday and will attempt again with BZD. awaiting MRI and echo. rest of workup negative. no events on monitor. neuro on board. asa and statin. PT eval. 2. HTN urgency-improved but above goal. will re-start chlorathiadone which is home med. close BP monitoring. 3. unknown arrhythmia- none appreaciated on tele moniotring. cont coreg. 4. +murmur- heard on exam. states she thinks she was told she had one in the past. check echo 5. DVT ppx- EAM 6. d/c home pending results of tests mentioned above. spoke with daughter present at bedside. all questions answered. verbalized understanding and agreement
--- NOTE | 2018-07-24 16:20 | DS ---
Physical Exam: SUBJECTIVE: Patient seen and examined at bedside. no acute events overnight. Pt reports walking to the bathroom without difficulty. denies fever, chills, cp, sob, limb weakness, speech slurr, n/v/d. Family updated and aware of dc plan and instructions OBJECTIVE: Vital Signs Period Temp Pulse Resp BP Sys/Amaya Pulse Ox Last 24 Hr 97.8 F-98.4 F 62-78 18-18 123-154/60-86 99-99 PHYSICAL EXAM GENERAL: NAD, AOX3 HEENT: NC/AT, EOMI, JARAD, sclera anicteric, facial symmetry at rest, MMM NECK: Soft, no TTP along C-spine, no lymphadenopathy LUNGS: CTAB HEART: RRR, S1, S2 ABDOMEN: Soft, NT/ND, normoactive bowel sounds, no guarding EXTREMITIES: 2+ DP pulses, warm, well-perfused, no edema. NEUROLOGICAL: supervisor poultry farm II through XII grossly intact including facial sensation. Strength 5/5 in shoulder shrug, UExt and LExt regions. Sensation intact throughout. Gait normal. Normal speech. No dysmetria or dysdiadocokinesia. Patellar reflex 2/4 PSYCH: Normal mood, normal affect. SKIN: Warm, dry, no rashes or lesions noted LABS HOSPITAL COURSE: Date of Admission:07/21/18 Date of Discharge: 07/24/18 57 yo female with PMH HTN and a "heart rhythm condition" for which she does not know the name (not on AC) admitted following an acute onset of Left face paresthesia, left neck pain, left arm weakness and left leg weakness Pt admitted for CVA r/o and found w/ HTN urgency. Neurology consulted. CT head negative, CTA brain and neck unremarkable. carotid ultrasound is normal. Passed bedside swallow eval. MRI showed no evidence of abnormal restricted diffusion in the brain to suggest acute or subacute infarction. Mild supratentorial subcortical white matter microangiopathic ischemic changes, gliosis. Echo w/ mild conc LV hypertrophy, EF 55-66%, mild aortic sclerosis, PA sys 30, RA 3. pt started on ASA/statin and to f/u w/ neuro outpt. B12 nl, A1C 6 HTN urgency improved w/ home Coreg and Losartan. chlorthalidone was initially held as to allow some permissive hypertension, but was restarted at discharge Abnormal heart rhythm: no events on monitor -ECG unchanged from previous in 2014, NSR -suspect possible paroxysmal a-fib, though not on AC cont coreg Family updated and aware of dc plan and instructions pt stable and ready for dc. Minutes to complete discharge: 37 Discharge Summary Reason For Visit: TRANSIENT ISCHEMIC ATTACK Current Active Problems Numbness (Acute) TIA (transient ischemic attack) (Acute) Condition: Guarded - Instructions Diet, Activity, Other Instructions: YOu were observed in the hospital due to your symptoms. All workup was negative for you having a stroke But you do have signs of long standing hypertension It is very important that you control your blood pressure with goal being <120/ 80. You can get a blood pressure cuff and check your blood pressure daily or if you are having symptoms (headache, lightheadedness or blurred vision) to see what your blood pressure is. Keep a log of your blood pressure and bring it with you to your next doctor appointment. Eat a low salt diet Continue your blood pressure medications You have been started on baby aspirin and a cholesterol medication (Lipitor) which should be taken daily Follow up with your primary care doctor in 1 week Follow up with neurology in 2 weeks. Information on the one you saw here has been provided Return to the ER if your symptoms return or if you develop chest pain or shortness of breath. Referrals: Porter Terrell MD [Primary Care Provider] - - Home Medications Comprehensive Discharge Medication List: Ambulatory Orders Carvedilol [Coreg -] 3.125 mg PO BID 07/21/18 Chlorthalidone 25 mg PO DAILY 07/21/18 Cholecalciferol (Vitamin D3) [Vitamin D3 -] 1,000 unit PO DAILY 07/21/18 Losartan Potassium [Cozaar] 100 mg PO DAILY 07/21/18 This patient is new to me today: Yes Date on this admission: 07/24/18 Emergency Visit: Yes ED Registration Date: 07/21/18 Care time: The patient presented to the Emergency Department on the above date and was hospitalized for further evaluation of their emergent condition. Critical Care patient: No - Discharge Referral Referred to [facility] Med P.C.: No
[2018-07-24 17:23] VITALS: BP 144/73; PULSE 72; TEMP 98
== END 2018-07-24 18:51 | disposition home or self-care (01) ==
LOC: JER 18:34 → JERBED 21:54 → J4W 07-22 15:31
PROVIDERS: ADMIT Internal Medicine; ATTEND Internal Medicine
PROC: 3E033NZ Introduction of Analgesics, Hypnotics, Sedatives into Peripheral Vein, Percutaneous Approach (ICD-10-PCS; principal; 2018-07-21)
PROC: 3E0337Z Introduction of Electrolytic and Water Balance Substance into Peripheral Vein, Percutaneous Approach (ICD-10-PCS; 2018-07-21)
PROC: 3E033GC Introduction of Other Therapeutic Substance into Peripheral Vein, Percutaneous Approach (ICD-10-PCS; 2018-07-21)
DX: G45.9 Transient cerebral ischemic attack, unspecified (principal); I16.0 Hypertensive urgency; R20.0 Anesthesia of skin; I49.9 Cardiac arrhythmia, unspecified; R53.1 Weakness; R01.1 Cardiac murmur, unspecified
CPT/HCPCS: 36415; 70450-TC; 70496-TC; 70498-TC; 70551-TC; 80048; 80053; 81003; 81015; 82465; 82550; 82607; 83036; 83718; 83721; 83735; 84100; 84478; 84484; 85025; 85027; 85610; 85651; 86140; 86850; 86900; 86901; 93005; 93010; 93306-TC; 93880-TC; 99285-25; G0378; J0131; J7030

== ENCOUNTER 2018-11-28 02:56 | Inpatient (IN) | payer OTHER ==
[2018-11-28] MEDS ORDERED: morphine CARPU-JECT 4 MG/1 ML DISP.SYRIN IVPUSH ONE (03:41)
[2018-11-28] MEDS ORDERED: SODIUM CHLORIDE 0.9% 500 ML INFUS.BAG IV ONE (03:55)
--- NOTE | 2018-11-28 03:55 | PDOC ---
History of Present Illness - General Chief Complaint: Pain, Acute Stated Complaint: PAIN Time Seen by Provider: 11/28/18 03:45 History Source: Patient - History of Present Illness Initial Comments: 11/28/18 04:31 The patient is a 57 year old female with a PMH of TIA who presents with acute onset of abdominal pain. Pain started at 10 p.m. yesterday evening and is sharp , especially prominent in her epigastric and RUQ and associated with multiple episodes of emesis. No fevers/chills. Last BM around 6 or 7 p.m. yesterday evening and was watery, non-bloody. Last PO intake at 7 p.m. No prior h/o abdominal surgeries. NKDA PMD: Dr. Porter Terrell Past History - Past Medical History Allergies/Adverse Reactions: Allergies Allergy/AdvReac Type Severity Reaction Status Date / Time No Known Allergies Allergy Verified 11/28/18 04:02 Home Medications: Ambulatory Orders Carvedilol [Coreg -] 3.125 mg PO BID 07/21/18 Chlorthalidone 25 mg PO DAILY 07/21/18 Cholecalciferol (Vitamin D3) [Vitamin D -] 1,000 unit PO DAILY 07/21/18 Losartan Potassium [Cozaar] 100 mg PO DAILY 07/21/18 Aspirin Coated [Ecotrin -] 81 mg PO DAILY #30 tablet.ec 07/24/18 Atorvastatin Ca [Lipitor] 40 mg PO HS #30 tablet 07/24/18 Asthma: Yes COPD: No HTN: Yes - Surgical History Abdominal Surgery: Yes (TUBAL LIGATION) - Suicide/Smoking/Psychosocial Hx Smoking Status: No Smoking History: Never smoked Have you smoked in the past 12 months: No Number of Cigarettes Smoked Daily: 0 Hx Alcohol Use: Yes (social) Drug/Substance Use Hx: No Substance Use Type: None Hx Substance Use Treatment: No Review of Systems - Review of Systems Constitutional: No: Chills, Fever Respiratory: No: Cough, Shortness of Breath Cardiac (ROS): No: Chest Pain, Lightheadedness, Palpitations, Syncope ABD/GI: Yes: Nausea, Vomiting, Abdominal cramping. No: Constipated, Diarrhea *Physical Exam - Physical Exam General Appearance: Yes: Nourished, Appropriately Dressed HEENT: positive: Normal Voice, Hearing Grossly Normal Neck: positive: Trachea midline, Supple Respiratory/Chest: positive: Lungs Clear, Normal Breath Sounds Cardiovascular: positive: Regular Rate, S1, S2 Vascular Pulses: Dorsalis-Pedis (R): 2+, Doralis-Pedis (L): 2+ Gastrointestinal/Abdominal: positive: Other (Epigastric and RUQ TTP w/o peritoneal sign, (+) Gerardo's sign) Musculoskeletal: negative: CVA Tenderness (R), CVA Tenderness (L) Extremity: positive: Normal Capillary Refill, Normal Inspection Integumentary: positive: Normal Color, Dry, Warm Neurologic: positive: marketing graphics specialist II-XII NML intact, Fully Oriented, Alert ED Treatment Course - LABORATORY CBC & Chemistry Diagram: 11/28/18 04:05 11/28/18 04:05 Medical Decision Making - Medical Decision Making 11/28/18 04:32 57 y/o female with acute onset of abdominal pain. Hypertensive 172/66, other VS unremarkable Epigastric and RUQ TTP w/o peritoneal sign, (+) Gerardo's sign FRONTAL DIAGNOSIS: cholecystitis/bilary colic, early appendicitis, pancreatitis , colitis, gastroenteritis, also consider but less likely SBO, diverticulitis, mesenteric ischemia, mesenteric adenitis, r/o ACS PLAN: CTAP (U/S unavailable overnight), Lipase, Basic Labs, Troponin, EKG, CXR. Symptomatic care with Morphine and IV hydration. 11/28/18 04:48 Bedside U/S shows cholelithiasis w/AGBW thickening; (+) sonographic Gerardo's sign Patient symptomatically improved s/p Morphine Lipase wnL CBC, CMP unremarkable including normal bilirubin, LFT's 11/28/18 06:43 CT shows cholelithiasis, gallbladder distention, equivocal for acute inflammation; will obtain RUQ ultrasound 11/28/18 07:04 Patient signed out to Dr. Teixeira (Resident) and Dr. Hernandez (Attending) @ 0730 Pending orders: Coags, T/S, Dilaudid, Zofran, additional 1 L IVNS and RUQ U/S *DC/Admit/Observation/Transfer Diagnosis at time of Disposition: Gallbladder disease - Discharge Dispostion Condition at time of disposition: Fair Decision to Admit order: Yes - Referrals Referrals: Porter Terrell MD [Primary Care Provider] - - Patient Instructions - Post Discharge Activity
--- NOTE | 2018-11-28 03:57 | PDOC ---
Attending Attestation - Resident Resident Name: Emi Mejia - ED Attending Attestation I have performed the following: I have examined & evaluated the patient, The case was reviewed & discussed with the resident, I agree w/resident's findings & plan - HPI HPI: 11/28/18 06:51 57-year-old female with right upper quadrant pain - Physicial Exam PE: 11/28/18 06:54 agree with resident's exam - Medical Decision Making 11/28/18 06:54 57-year-old female with right upper quadrant pain CT scan suggests gallbladder disease Right upper quadrant ultrasound ordered Lab for admission to medical service, Unasyn 3 g IV piggyback as well as narcotics for pain
[2018-11-28] MEDS ORDERED: MAG HYDROX/AL HYDROX/SIMETH 30 ML UNIT-DOSE CUP PO ONE (03:59)
[2018-11-28] MEDS ORDERED: METOCLOPRAMIDE HCL INJECTION 10 MG/2 ML VIAL IVPUSH ONE (03:59)
[2018-11-28] MEDS ORDERED: METOCLOPRAMIDE HCL INJECTION 10 MG/2 ML VIAL ONE (04:16)
[2018-11-28] MEDS ORDERED: morphine SULFATE 4 MG/ML VIAL ONE (04:17)
[2018-11-28] MEDS ORDERED: MAG HYDROX/AL HYDROX/SIMETH 30 ML UNIT-DOSE CUP ONE (04:17)
[2018-11-28 04:22] LABS: BASO % 0.5 % (0-2.0); EOS % 1.5 % (0-4.5); HEMATOCRIT 38.5 % (32.4-45.2); HEMOGLOBIN 13.3 GM/dL (10.7-15.3); LYMPH % 13.4 % (8-40); MCH 32.8 pg (25.7-33.7); MCHC 34.7 g/dl (32.0-36.0); MEAN CELL VOLUME 94.5 fl (80-96); MEAN PLT VOLUME 9.6 fl (7.5-11.1); MONO % 5.7 % (3.8-10.2); NEUT % 78.9 % (42.8-82.8); PLATELET COUNT 179 K/MM3 (134-434); RBC 4.07 M/mm3 (3.60-5.2); RDW 13.6 % (11.6-15.6); WHITE BLOOD COUNT 7.5 K/mm3 (4.0-10.0)
[2018-11-28 04:43] LABS: ALBUMIN 3.7 g/dl (3.4-5.0); BILIRUBIN,TOTAL 0.4 mg/dL (0.2-1); BLOOD UREA NITROGEN 12.9 mg/dL (7-18); CALCIUM 8.6 mg/dL (8.5-10.1); CREATININE 0.7 mg/dL (0.55-1.3); POTASSIUM 3.8 mmol/L (3.5-5.1); TOT PROT 6.8 g/dl (6.4-8.2)
[2018-11-28] MEDS ORDERED: AMPICILLIN NA/SULBACTAM NA 1.5 GM in SODIUM CHLORIDE 100 ML IVPB ONE (06:52)
[2018-11-28] MEDS ORDERED: HYDROmorphone HCL CARPU-JECT 2 MG/1 ML DISP.SYRIN IVPUSH ONE (06:54)
[2018-11-28] MEDS ORDERED: AMPICILLIN NA/SULBACTAM NA 3 GM in SODIUM CHLORIDE 100 ML IVPB ONE (06:55)
[2018-11-28] MEDS ORDERED: ONDANSETRON 4 MG/2 ML VIAL IVPUSH ONE (07:02)
[2018-11-28] MEDS ORDERED: SODIUM CHLORIDE 1,000 ML IV STA (07:02)
[2018-11-28 07:59] LABS: INR 1.03 (0.83-1.09); PROTHROMBIN TIME (PATIENT) 12.2 SEC (9.7-13.0)
[2018-11-28 08:02] LABS: ACTIVATED PTT 30.3 SECONDS (25.2-36.5)
[2018-11-28] MEDS ORDERED: ONDANSETRON 4 MG/2 ML VIAL ONE (08:23)
--- NOTE | 2018-11-28 09:00 | PDOC ---
*Physical Exam - Vital Signs Last Vital Signs Temp Pulse Resp BP Pulse Ox 98.4 F 66 20 172/66 H 97 11/28/18 02:58 11/28/18 02:58 11/28/18 02:58 11/28/18 02:58 11/28/18 02:58 - Physical Exam Comments: 11/28/18 08:59 Patient's care was endorsed to me by Dr. Mejia at the end of her shift. Patient is a 57 YOF with abdominal pain, nausea, POCUS c/f calculous cholecystitis, abdominal CT reflects large stone within GB, pending formal US prior to admission. She has ongoing symptoms at the time of sign-out to me. Repeat medications were ordered at that time. ED Treatment Course - LABORATORY CBC & Chemistry Diagram: 11/28/18 04:05 11/28/18 04:05 - ADDITIONAL ORDERS Additional order review: Laboratory Results 11/28/18 11/28/18 11/28/18 07:28 07:28 04:05 PT with INR 12.20 INR 1.03 PTT (Actin FS) 30.3 Sodium Potassium Chloride Carbon Dioxide Anion Gap BUN Creatinine Est GFR (CKD-EPI)AfAm Est GFR (CKD-EPI)NonAf Random Glucose Calcium Total Bilirubin AST ALT Alkaline Phosphatase Creatine Kinase 136 Troponin I < 0.02 Total Protein Albumin Lipase Blood Type O POSITIVE Antibody Screen Negative 11/28/18 04:05 PT with INR INR PTT (Actin FS) Sodium 141 Potassium 3.8 Chloride 108 H Carbon Dioxide 27 Anion Gap 7 L BUN 12.9 Creatinine 0.7 Est GFR (CKD-EPI)AfAm 112.26 Est GFR (CKD-EPI)NonAf 96.86 Random Glucose 133 H Calcium 8.6 Total Bilirubin 0.4 AST 17 ALT 22 Alkaline Phosphatase 101 Creatine Kinase Troponin I Total Protein 6.8 Albumin 3.7 Lipase 82 Blood Type Antibody Screen 11/28/18 04:05 RBC 4.07 MCV 94.5 MCHC 34.7 RDW 13.6 MPV 9.6 Neutrophils % 78.9 Lymphocytes % 13.4 D Monocytes % 5.7 Eosinophils % 1.5 Basophils % 0.5 - Medications Given in the ED: ED Medications Discontinued Medications Generic Name Dose Route Start Last Admin Trade Name Freq PRN Reason Stop Dose Admin Al Hydroxide/Mg Hydroxide 30 ml 11/28/18 03:59 11/28/18 04:26 Mylanta Oral Suspension - PO 11/28/18 04:00 30 ml ONCE ONE Administration Ampicillin Sodium/Sulbactam 100 mls @ 200 mls/hr 11/28/18 06:52 11/28/18 07: 08 Sodium 1.5 gm/ Sodium Chloride IVPB 11/28/18 07:21 Not Given ONCE ONE Sodium Chloride 1,000 mls @ 1,000 mls/hr 11/28/18 07:02 11/28/18 08:24 Normal Saline - IV 11/28/18 08:01 1,000 mls/hr ASDIR STA Administration Metoclopramide HCl 10 mg 11/28/18 03:59 11/28/18 04:27 Reglan Injection - IVPUSH 11/28/18 04:00 10 mg ONCE ONE Administration Morphine Sulfate 4 mg 11/28/18 03:41 11/28/18 04:26 Morphine Injection - IVPUSH 11/28/18 03:42 4 mg ONCE ONE Administration Ondansetron HCl 4 mg 11/28/18 07:02 11/28/18 08:24 Zofran Injection IVPUSH 11/28/18 07:03 4 mg ONCE ONE Administration Sodium Chloride 1,000 ml 11/28/18 03:55 11/28/18 04:26 Normal Saline - IV 11/28/18 03:56 1,000 ml ONCE ONE Administration Medical Decision Making - Medical Decision Making 11/28/18 09:29 RUQ US concerning for calculous cholecystitis. Surgery called but the on-call provider is in the OR. The Pt is unsafe for discharge at this time. They require further hospital observation, workup, and treatment. She has already received antibiotics (Unasyn). Microblog sent to [facility] for admission. Blank decision to admit order was already placed before shift change. 11/28/18 09:34 I spoke with [facility]un Alvarez, coming to see the patient, admitted to Dr. Sousa. *DC/Admit/Observation/Transfer Diagnosis at time of Disposition: Gallbladder disease - Discharge Dispostion Condition at time of disposition: Fair - Referrals Referrals: Porter Terrell MD [Primary Care Provider] - - Patient Instructions - Post Discharge Activity
[2018-11-28 09:34] LABS: PH,URINE 6.5 (5.0-8.0); URINE APPEARANCE CLEAR; URINE BILIRUBIN NEGATIVE (NEGATIVE); URINE COLOR YELLOW; URINE GLUCOSE (UA) NEGATIVE (NEGATIVE); URINE KETONE NEGATIVE (NEGATIVE); URINE LEUK ESTERASE NEGATIVE (NEGATIVE); URINE NITRITE NEGATIVE (NEGATIVE); URINE PROTEIN NEGATIVE (NEGATIVE); URINE UROBILINOGEN 0.2 mg/dL (0.2-1.0)
--- NOTE | 2018-11-28 09:46 | HP ---
Admitting History and Physical - Primary Care Physician PCP: Porter Terrell - Admission Chief Complaint: abdominal pain to RUQ History of Present Illness: The patient is a 57 year old female with a PMH of TIA who presents with acute onset of abdominal pain. Pain started at 10 p.m. yesterday evening and is sharp , especially prominent in her epigastric and RUQ and associated with multiple episodes of emesis. No fevers/chills. Last BM around 6 or 7 p.m. yesterday evening and was watery, non-bloody. Last PO intake at 7 p.m. No prior h/o abdominal surgeries. 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 Cardiovascular: Yes: HTN, Hyperlipdemia Hepatobiliary: Yes: Cholelithiasis Reproductive: Yes: Other - Past Surgical History Past Surgical History: Yes: Tubal Ligation (20 years ago) - Smoking History Smoking history: Never smoked Have you smoked in the past 12 months: No Aproximately how many cigarettes per day: 0 - Alcohol/Substance Use Hx Alcohol Use: Yes (social) - Social History Usual Living Arrangement: Yes: With Spouse ADL: Independent History of Recent Travel: No Home Medications - Allergies Allergies/Adverse Reactions: Allergies Allergy/AdvReac Type Severity Reaction Status Date / Time No Known Allergies Allergy Verified 11/28/18 04:02 - Home Medications Home Medications: Ambulatory Orders Carvedilol [Coreg -] 3.125 mg PO BID 07/21/18 Chlorthalidone 25 mg PO DAILY 07/21/18 Cholecalciferol (Vitamin D3) [Vitamin D -] 1,000 unit PO DAILY 07/21/18 Losartan Potassium [Cozaar] 100 mg PO DAILY 07/21/18 Aspirin Coated [Ecotrin -] 81 mg PO DAILY #30 tablet.ec 07/24/18 Atorvastatin Ca [Lipitor] 40 mg PO HS #30 tablet 07/24/18 Family Disease History - Family Disease History Family History: Unremarkable Review of Systems - Review of Systems Constitutional: reports: Fever (subjective at home) Eyes: reports: No Symptoms HENT: reports: No Symptoms Neck: reports: No Symptoms Cardiovascular: reports: No Symptoms Respiratory: reports: No Symptoms Gastrointestinal: reports: Abdominal Pain (RUQ to mid-epigastric), Melena, Vomiting (bilious), Other (BM 2 days ago) Genitourinary: reports: No Symptoms Breasts: reports: No Symptoms Reported Musculoskeletal: reports: No Symptoms Integumentary: reports: No Symptoms Neurological: reports: No Symptoms Endocrine: reports: No Symptoms Hematology/Lymphatic: reports: No Symptoms Psychiatric: reports: No Symptoms Pain Intensity: 6 (10 on admission and overnight) Physical Examination Vital Signs: Vital Signs Temperature 98.1 F 11/28/18 09:33 Pulse Rate 71 11/28/18 09:33 Respiratory Rate 16 11/28/18 09:33 Blood Pressure 127/80 11/28/18 09:33 O2 Sat by Pulse Oximetry (%) 98 11/28/18 09:33 Constitutional: Yes: Well Nourished, No Distress, Calm, Mild Distress ( secondary to pain) Eyes: Yes: WNL, Conjunctiva Clear, EOM Intact HENT: Yes: WNL, Atraumatic, Normocephalic Neck: Yes: WNL, Supple, Trachea Midline Cardiovascular: Yes: WNL, Regular Rate and Rhythm Respiratory: Yes: WNL, Regular, CTA Bilaterally Gastrointestinal: Yes: Normal Bowel Sounds, Abdomen, Obese, Tenderness (to RUQ) , Tenderness, Epigastrium ...Rectal Exam: Yes: Deferred Renal/: Yes: WNL Breast(s): Yes: WNL Musculoskeletal: Yes: WNL Extremities: Yes: WNL Edema: No Peripheral Pulses WNL: Yes Integumentary: Yes: WNL Neurological: Yes: WNL, Alert, Oriented ...Motor Strength: WNL Psychiatric: Yes: WNL, Alert, Oriented Labs: CBC, BMP 11/28/18 04:05 11/28/18 04:05 Imaging - Results Cat Scan: Report Reviewed ( Impression: Abnormal gallbladder with stones including a Stone in neck. No definitive secondary signs of cholecystitis. Additional evaluation is needed as well as clinical correlation. Hepatosplenomegaly with a significantly fatty liver and pericholecystic sparing. ) Problem List - Problems (1) Prophylactic measure Assessment/Plan: FEN NPO for possible OR May resume post surgical a low fat/cholesterol diet nutrition counseling IVF when NPO monitor electrolytes Code(s): Z29.9 - ENCOUNTER FOR PROPHYLACTIC MEASURES, UNSPECIFIED (2) Gallbladder disease Code(s): K82.9 - DISEASE OF GALLBLADDER, UNSPECIFIED (3) Hypertension Assessment/Plan: hypertensive on admission secondary to pain continue home doses of coreg and losartan Code(s): I10 - ESSENTIAL (PRIMARY) HYPERTENSION (4) Hyperlipidemia Assessment/Plan: maintain home dose of lipitor Code(s): E78.5 - HYPERLIPIDEMIA, UNSPECIFIED (5) Acalculous cholecystitis Assessment/Plan: large stone seen on POCUS in GB surgery consult by Dr Reese plan for OR tomorrow for cholecyctectomy NPO after mn Code(s): K81.9 - CHOLECYSTITIS, UNSPECIFIED Assessment/Plan Medical Decision Making - Medical Decision Making 11/28/18 09:29 RUQ US concerning for calculous cholecystitis. Surgery called but the on-call provider is in the OR. The Pt is unsafe for discharge at this time. They require further hospital observation, workup, and treatment. She has already received antibiotics (Unasyn). Microblog sent to Jaun for admission. Blank decision to admit order was already placed before shift change. 11/28/18 09:34 I spoke with Jaun Alvarez, coming to see the patient, admitted to Dr. Sousa. Visit type - Emergency Visit Emergency Visit: Yes ED Registration Date: 11/28/18 Care time: The patient presented to the Emergency Department on the above date and was hospitalized for further evaluation of their emergent condition. - New Patient This patient is new to me today: Yes Date on this admission: 11/28/18 - Critical Care Critical Care patient: No
--- NOTE | 2018-11-28 10:32 | EKG ---
Test Reason : Blood Pressure : / mmHG Vent. Rate : 062 BPM Atrial Rate : 062 BPM P-R Int : 212 ms QRS Dur : 090 ms QT Int : 430 ms P-R-T Axes : 031 068 073 degrees QTc Int : 436 ms SINUS RHYTHM WITH 1ST DEGREE A-V BLOCK OTHERWISE NORMAL ECG Confirmed by MD QUINTIN, YAMILA ([id number]) on 11/28/2018 10:32:47 AM Referred By: Confirmed By:YAMILA RIBEIRO MD
--- NOTE | 2018-11-28 11:28 | CONSULT ---
Consult Consult Specialty:: General Surgery Reason for Consultation:: symptomatic cholelithiasis - History of Present Illness Chief Complaint: abdominal pain History of Present Illness: 57 yo female PMH TIA who presents with acute onset of abdominal pain. Pain started at 10pm yesterday evening and is sharp, especially prominent in her epigastric and RUQ and associated with multiple episodes of emesis. No fevers/ chills. Last BM around 6 or 7pm yesterday evening and was watery, non-bloody. Last PO intake at 7pm No prior h/o abdominal surgeries. We called to assess. 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 - Alcohol/Substance Use Hx Alcohol Use: Yes (social) History of Substance Use: reports: None - Smoking History Smoking history: Never smoked Have you smoked in the past 12 months: No Aproximately how many cigarettes per day: 0 - Social History Usual Living Arrangement: With Spouse Place of : Other History of Recent Travel: No Home Medications - Allergies Allergies/Adverse Reactions: Allergies Allergy/AdvReac Type Severity Reaction Status Date / Time No Known Allergies Allergy Verified 11/28/18 04:02 - Home Medications Home Medications: Ambulatory Orders Carvedilol [Coreg -] 3.125 mg PO BID 07/21/18 Chlorthalidone 25 mg PO DAILY 07/21/18 Cholecalciferol (Vitamin D3) [Vitamin D -] 1,000 unit PO DAILY 07/21/18 Losartan Potassium [Cozaar] 100 mg PO DAILY 07/21/18 Aspirin Coated [Ecotrin -] 81 mg PO DAILY #30 tablet.ec 07/24/18 Atorvastatin Ca [Lipitor] 40 mg PO HS #30 tablet 07/24/18 Review of Systems - Review of Systems Constitutional: denies: Chills Eyes: denies: Blind Spots, Recent Change in Vision HENT: denies: Difficult Swallowing, Ear Discharge Neck: denies: Pain on Movement, Tenderness Cardiovascular: denies: Chest Pain, Palpitations Respiratory: denies: Cough, SOB Gastrointestinal: denies: Abdominal Pain, Bloating Genitourinary: denies: Discharge, Dysuria Breasts: reports: No Symptoms Reported. denies: Pain Musculoskeletal: denies: Back Pain, Crepitus Integumentary: denies: Lesions, Lump Neurological: denies: Seizure, Syncope Endocrine: denies: Unexplained Weight Gain, Unexplained Weight Loss Hematology/Lymphatic: denies: Easily Bruised, Excessive Bleeding Psychiatric: denies: Anxiety, Depression Physical Exam Vital Signs: Vital Signs Temperature 98.1 F 11/28/18 09:33 Pulse Rate 71 11/28/18 09:33 Respiratory Rate 16 11/28/18 09:33 Blood Pressure 127/80 11/28/18 09:33 O2 Sat by Pulse Oximetry (%) 98 11/28/18 09:33 Constitutional: Yes: Well Nourished, No Distress, Calm Eyes: Yes: Conjunctiva Clear, EOM Intact HENT: Yes: Atraumatic, Normocephalic Neck: Yes: Supple, Trachea Midline Cardiovascular: Yes: Regular Rate and Rhythm, S1, S2 Respiratory: Yes: Regular, CTA Bilaterally Gastrointestinal: Yes: Normal Bowel Sounds, Soft, Tenderness (RUQ), Tenderness, Rebound. No: Tenderness, Epigastrium ...Rectal Exam: Yes: Deferred Renal/: No: CVA Tenderness - Left, CVA Tenderness - Right Breast(s): No: Discharge from Nipple, Nipple Inversion Musculoskeletal: No: Joint Swelling, Muscle Pain Extremities: No: Cool, Cyanosis Edema: No Peripheral Pulses WNL: Yes Integumentary: No: Incision, Jaundice Neurological: Yes: Alert, Oriented Psychiatric: Yes: Alert, Oriented Labs: CBC, BMP 11/28/18 04:05 11/28/18 04:05 Imaging - Results Cat Scan: Report Reviewed (Large gallstone ?1cm at the dome several small stones ), Image Reviewed Ultrasound: Report Reviewed (6mm cbd), Image Reviewed Problem List - Problems (1) Gallbladder calculus with acute cholecystitis Assessment/Plan: 57 yo female MMP with bilary colic or early acute cholecystitis NPO and IVF hydration IV antibiotics adequate analgesia Discussed with patient risks, benefits and alternatives of laparoscopic possible open cholecystectomy, including but not limited to bleeding, infection , injury to adjacent structures, leak or injury, intraabdominal abscess, incisional hernia, need for further procedures, ; alternatives include antibiotics, delayed or no surgery - risks of this include failure of nonoperative therapy, perforation, sepsis, recurrence, . Patient desires to proceed with operation - will take to OR for above. Informed consent signed for same. Thank you for the opportunity to participate in the care of this patient. Code(s): K80.00 - CALCULUS OF GALLBLADDER W ACUTE CHOLECYST W/O OBSTRUCTION Qualifiers: Biliary obstruction: without biliary obstruction Qualified Code(s): K80.00 - Calculus of gallbladder with acute cholecystitis without obstruction (2) Hyperlipidemia Code(s): E78.5 - HYPERLIPIDEMIA, UNSPECIFIED Qualifiers: Hyperlipidemia type: unspecified Qualified Code(s): E78.5 - Hyperlipidemia , unspecified (3) Hypertension Code(s): I10 - ESSENTIAL (PRIMARY) HYPERTENSION Qualifiers: Hypertension type: essential hypertension Qualified Code(s): I10 - Essential (primary) hypertension (4) Asthma exacerbation Code(s): J45.901 - UNSPECIFIED ASTHMA WITH (ACUTE) EXACERBATION (5) TIA (transient ischemic attack) Code(s): G45.9 - TRANSIENT CEREBRAL ISCHEMIC ATTACK, UNSPECIFIED
[2018-11-28] MEDS ORDERED: METOCLOPRAMIDE HCL INJECTION 10 MG/2 ML VIAL IVPUSH PRN (11:58)
[2018-11-28] MEDS ORDERED: ONDANSETRON 4 MG/2 ML VIAL IVPB PRN (11:58)
[2018-11-28] MEDS ORDERED: LOSARTAN POTASSIUM 50 MG TABLET (FP) PO SCH (13:22)
[2018-11-28] MEDS ORDERED: ASPIRIN COATED 81 MG TABLET.EC PO SCH (13:24)
[2018-11-28] MEDS: AMPICILLIN NA/SULBACTAM NA 3 GM in SODIUM CHLORIDE 100 ML IVPB SCH ×2 (15:44→21:16)
[2018-11-28] MEDS: CARVEDILOL 3.125 MG TABLET (FP) PO SCH (21:16)
[2018-11-28] MEDS ORDERED: ACETAMINOPHEN 325 MG TABLET (FP) PO ONE (21:27)
[2018-11-28] MEDS ORDERED: ATORVASTATIN CA 40 MG TABLET (FP) PO SCH (22:00)
[2018-11-29] MEDS ORDERED: PT OWN MED DRAWER 7, Y5N ONE (02:45)
[2018-11-29] MEDS: AMPICILLIN NA/SULBACTAM NA 3 GM in SODIUM CHLORIDE 100 ML IVPB SCH ×3 (03:26→21:01)
[2018-11-29 08:05] LABS: ALBUMIN 3.1 g/dl (3.4-5.0); BILIRUBIN,TOTAL 0.6 mg/dL (0.2-1); BLOOD UREA NITROGEN 9.2 mg/dL (7-18); CALCIUM 8.2 mg/dL (8.5-10.1); CREATININE 0.6 mg/dL (0.55-1.3); MAGNESIUM 2.2 mg/dL (1.8-2.4); POTASSIUM 3.5 mmol/L (3.5-5.1)
[2018-11-29 08:13] LABS: BASO % 0.6 % (0-2.0); EOS % 3.8 % (0-4.5); HEMATOCRIT 36.3 % (32.4-45.2); HEMOGLOBIN 12.2 GM/dL (10.7-15.3); LYMPH % 27.2 % (8-40); MCH 31.9 pg (25.7-33.7); MCHC 33.5 g/dl (32.0-36.0); MEAN CELL VOLUME 95.1 fl (80-96); MEAN PLT VOLUME 9.7 fl (7.5-11.1); NEUT % 60.4 % (42.8-82.8); PLATELET COUNT 174 K/MM3 (134-434); RBC 3.82 M/mm3 (3.60-5.2); RDW 13.6 % (11.6-15.6); WHITE BLOOD COUNT 3.9 K/mm3 (4.0-10.0)
[2018-11-29] MEDS ORDERED: ACETAMINOPHEN 1000 MG/100 ML VIAL (NON FORMULARY) IVPB ONE ×2 (08:28→16:22)
--- NOTE | 2018-11-29 09:10 | PN ---
Physical Exam: SUBJECTIVE: Patient OBJECTIVE: Vital Signs Period Temp Pulse Resp BP Sys/Amaya Pulse Ox Last 24 Hr 98.1 F-98.6 F 60-71 16-20 127-157/50-80 97-98 GENERAL: The patient is awake, alert, and fully oriented, in no acute distress. HEAD: Normal with no signs of trauma. EYES: PERRL, extraocular movements intact, sclera anicteric, conjunctiva clear. No ptosis. ENT: Ears normal, nares patent, oropharynx clear without exudates, moist mucous membranes. NECK: Trachea midline, full range of motion, supple. LUNGS: Breath sounds equal, clear to auscultation bilaterally, no wheezes, no crackles, no accessory muscle use. HEART: Regular rate and rhythm, S1, S2 without murmur, rub or gallop. ABDOMEN: Soft, nontender, nondistended, normoactive bowel sounds, no guarding, no rebound, no hepatosplenomegaly, no masses. EXTREMITIES: 2+ pulses, warm, well-perfused, no edema. NEUROLOGICAL: Cranial nerves II through XII grossly intact. Normal speech, gait not observed. PSYCH: Normal mood, normal affect. SKIN: Warm, dry, normal turgor, no rashes or lesions noted Laboratory Results - last 24 hr 11/28/18 11/29/18 11/29/18 07:28 06:40 06:40 PTT (Actin FS) 28.8 Sodium 142 Potassium 3.5 Chloride 109 H Carbon Dioxide 27 Anion Gap 6 L BUN 9.2 Creatinine 0.6 Est GFR (CKD-EPI)AfAm 118.09 Est GFR (CKD-EPI)NonAf 101.89 Random Glucose 109 H Calcium 8.2 L Magnesium 2.2 Total Bilirubin 0.6 AST 15 ALT 21 Alkaline Phosphatase 83 Total Protein 6.0 L Albumin 3.1 L Total Amylase 35 Lipase 66 L Urine Color Yellow Urine Appearance Clear Urine pH 6.5 Ur Specific [place] 1.064 H Urine Protein Negative Urine Glucose (UA) Negative Urine Ketones Negative Urine Blood Negative Urine Nitrite Negative Urine Bilirubin Negative Urine Urobilinogen 0.2 Ur Leukocyte Esterase Negative Urine WBC (Auto) No Result Required. Urine RBC (Auto) No Result Required. Urine Casts (Auto) No Result Required. U Pathogenic Cast Auto No Result Required. U Epithel Cells (Auto) No Result Required. U Sm Round Cell (Auto) No Result Required. Urine Crystals (Auto) No Result Required. Urine Bacteria (Auto) No Result Required. Active Medications Generic Name Dose Route Start Last Admin Trade Name Freq PRN Reason Stop Dose Admin Aspirin 81 mg 11/28/18 13:24 Ecotrin - PO DAILY [facility] Atorvastatin Calcium 40 mg 11/28/18 22:00 11/28/18 21:16 Lipitor - PO 40 mg HS CHACHO Administration Carvedilol 3.125 mg 11/28/18 13:23 11/28/18 21:16 Coreg - PO 3.125 mg BID [facility] Administration Chlorthalidone 25 mg 11/29/18 10:00 [place] - PO DAILY [facility] Cholecalciferol 1,000 unit 11/29/18 10:00 Vitamin D3 - PO DAILY [facility] Ampicillin Sodium/Sulbactam 100 mls @ 200 mls/hr 11/28/18 15:00 11/29/18 03: 26 Sodium 3 gm/ Sodium Chloride IVPB 200 mls/hr Q6H-IV CHACHO Administration Losartan Potassium 100 mg 11/28/18 13:22 Cozaar - PO DAILY [facility] Metoclopramide HCl 10 mg 11/28/18 11:58 Reglan Injection - IVPUSH Q8H PRN NAUSEA AND/OR VOMITING Ondansetron HCl 8 mg 11/28/18 11:58 Zofran Injection IVPB Q6H PRN NAUSEA ASSESSMENT/PLAN:
--- NOTE | 2018-11-29 09:57 | PN ---
Progress Note, Physician Chief Complaint: Abdominal Pain to RUQ and Headache History of Present Illness: The patient is a 57 year old female with a PMH of TIA who presents with acute onset of abdominal pain. Pain started at 10 p.m. on Tuesday (11/27). PT described pain as sharp, especially prominent in her epigastric and RUQ and associated with multiple episodes of emesis. No fevers/chills. Last BM around 6 or 7 p.m. on Tuesday and was watery, non-bloody. Last PO intake at 7 p.m. on Tuesday No prior h/o abdominal surgeries. - Current Medication List Current Medications: Active Medications Aspirin (Ecotrin -) 81 mg PO DAILY [facility] Atorvastatin Calcium (Lipitor -) 40 mg PO HS [facility] Last Admin: 11/28/18 21:16 Dose: 40 mg Carvedilol (Coreg -) 3.125 mg PO BID [facility] Last Admin: 11/28/18 21:16 Dose: 3.125 mg Chlorthalidone (Hygroton -) 25 mg PO DAILY [facility] Cholecalciferol (Vitamin D3 -) 1,000 unit PO DAILY [facility] Ampicillin Sodium/Sulbactam (Sodium 3 gm/ Sodium Chloride) 100 mls @ 200 mls/ hr IVPB Q6H-IV [facility] Last Admin: 11/29/18 03:26 Dose: 200 mls/hr Losartan Potassium (Cozaar -) 100 mg PO DAILY [facility] Metoclopramide HCl (Reglan Injection -) 10 mg IVPUSH Q8H PRN PRN Reason: NAUSEA AND/OR VOMITING Ondansetron HCl (Zofran Injection) 8 mg IVPB Q6H PRN PRN Reason: NAUSEA - Objective Vital Signs: Vital Signs Temperature 98.5 F 11/29/18 06:36 Pulse Rate 60 11/29/18 06:36 Respiratory Rate 20 11/29/18 06:36 Blood Pressure 131/75 11/29/18 06:36 O2 Sat by Pulse Oximetry (%) 98 11/28/18 21:00 Constitutional: Yes: Well Nourished, Mild Distress, Other Eyes: Yes: WNL, Conjunctiva Clear HENT: Yes: WNL, Atraumatic Neck: Yes: WNL, Trachea Midline Cardiovascular: Yes: WNL, Regular Rate and Rhythm, S1, S2 Respiratory: Yes: WNL, Regular, CTA Bilaterally Gastrointestinal: Yes: Normal Bowel Sounds, Soft, Tenderness, Epigastrium ...Rectal Exam: Yes: Deferred Extremities: Yes: WNL Edema: No Integumentary: Yes: WNL Neurological: Yes: WNL, Alert, Oriented Labs: CBC, BMP 11/29/18 06:40 11/29/18 06:40 INR, PTT INR 1.03 (0.83-1.09) 11/28/18 07:28 Problem List - Problems (1) Acalculous cholecystitis Assessment/Plan: Lap Lana scheduled for 2pm today Code(s): K81.9 - CHOLECYSTITIS, UNSPECIFIED (2) Gallbladder disease Code(s): K82.9 - DISEASE OF GALLBLADDER, UNSPECIFIED (3) Hyperlipidemia Assessment/Plan: Maintain home dose of Lipitor Code(s): E78.5 - HYPERLIPIDEMIA, UNSPECIFIED Qualifiers: Hyperlipidemia type: unspecified Qualified Code(s): E78.5 - Hyperlipidemia , unspecified (4) Hypertension Assessment/Plan: Continue home dose of Coreg and Losartan Code(s): I10 - ESSENTIAL (PRIMARY) HYPERTENSION Qualifiers: Hypertension type: essential hypertension Qualified Code(s): I10 - Essential (primary) hypertension (5) Prophylactic measure Assessment/Plan: Fluids Electrolytes and Nutrition NPO Will resume a low fat/cholesterol diet post op Monitor electrolytes DVT Prophylaxis-Ambulation & SCDs Nutrition Counseling Code(s): Z29.9 - ENCOUNTER FOR PROPHYLACTIC MEASURES, UNSPECIFIED (6) Head ache Assessment/Plan: Ofirmev 1000mg IVPB Once Code(s): R51 - HEADACHE Qualifiers: Headache chronicity pattern: acute headache Visit type - Emergency Visit Emergency Visit: Yes ED Registration Date: 11/28/18 Care time: The patient presented to the Emergency Department on the above date and was hospitalized for further evaluation of their emergent condition. - New Patient This patient is new to me today: Yes Date on this admission: 11/29/18 - Critical Care Critical Care patient: No - Discharge Referral Referred to [facility] Med P.C.: No
[2018-11-29] MEDS ORDERED: CARVEDILOL 3.125 MG TABLET (FP) PO SCH (10:00)
[2018-11-29] MEDS ORDERED: CHLORTHALIDONE 25 MG TABLET PO SCH (10:00)
[2018-11-29] MEDS ORDERED: LOSARTAN POTASSIUM 50 MG TABLET (FP) PO SCH (10:00)
[2018-11-29] MEDS ORDERED: CHOLECALCIFEROL (VIT D3) 1,000 UNIT (25 MCG) TABLET PO SCH (10:00)
[2018-11-29] MEDS ORDERED: ASPIRIN COATED 81 MG TABLET.EC PO SCH (10:00)
[2018-11-29] MEDS: CARVEDILOL 3.125 MG TABLET (FP) PO SCH ×2 (10:26→21:09)
--- NOTE | 2018-11-29 13:02 | OP ---
Operative Note - Note: Operative Date: 11/29/18 Pre-Operative Diagnosis: Gallbladder calculus without biliary obstruction, Biliary Colic Operation: Laparoscopic Cholecystectomy Findings: large distended gallbladder, large stone in fudus, edema noted in the wall on dissection from the liver bed Post-Operative Diagnosis: Other (Acute on chronic cholecystitis) Surgeon: Kana Reese Lpn Rn: Mario Britton Anesthesiologist/[employer]ALES AGENT INSURANCE: Polina Granger Anesthesia: General, Local Specimens Removed: gallbladder with stones Estimated Blood Loss (mls): 15 Fluid Volume Replaced (mls): 1,000 Operative Report Dictated: Yes
[2018-11-29] MEDS ORDERED: ONDANSETRON 4 MG/2 ML VIAL IVPUSH PRN (13:57)
[2018-11-29] MEDS ORDERED: LACTATED RINGERS SOLUTION 1,000 ML IV SCH (14:00)
[2018-11-29] MEDS ORDERED: BENZOIN TINCTURE SWABSTICK TP ONE (14:07)
[2018-11-29] MEDS ORDERED: BUPIVACAINE HCL/PF 0.5% (5MG/ML) 10 ML VIAL ONE (14:07)
[2018-11-29] MEDS ORDERED: HYDROmorphone HCl 2 MG/ML VIAL ONE (14:10)
[2018-11-29] MEDS ORDERED: PROPOFOL 20 ML ONE ×2 (14:10)
[2018-11-29] MEDS ORDERED: ETOMIDATE 20 MG/10 ML AMPUL IVPUSH ONE ×2 (14:10→14:11)
[2018-11-29] MEDS ORDERED: SUCCINYLCHOLINE CHLORIDE 200 MG/10 ML SYRINGE ONE (14:11)
[2018-11-29] MEDS ORDERED: ROCURONIUM BROMIDE 50 MG/5 ML SYRINGE ONE (14:11)
[2018-11-29] MEDS ORDERED: ceFAZolin SODIUM 1 GM VIAL IVPB ONE (14:35)
[2018-11-29] MEDS ORDERED: ceFAZolin SODIUM 1 GM VIAL ONE (14:46)
[2018-11-29] MEDS ORDERED: NEOSTIGMINE METHYLSULFATE 0.5 MG/ML - 10 ML MDV ONE (14:55)
[2018-11-29] MEDS ORDERED: BUPIVACAINE HCL/PF (5 MG/ML) 30 ML VIAL IJ ONE ×2 (15:12)
[2018-11-29] MEDS ORDERED: ONDANSETRON 4 MG/2 ML VIAL IVPB PRN (16:20)
[2018-11-29] MEDS ORDERED: METOCLOPRAMIDE HCL INJECTION 10 MG/2 ML VIAL IVPUSH PRN (16:20)
[2018-11-29] MEDS ORDERED: KETOROLAC TROMETHAMINE 30 MG/1 ML VIAL ONE (16:48)
[2018-11-29] MEDS: LACTATED RINGERS SOLUTION 1,000 ML/1,000 ML INFUS.BAG IV SCH (17:30)
[2018-11-29] MEDS ORDERED: KETOROLAC TROMETHAMINE 30 MG/1 ML VIAL IVPUSH ONE (17:45)
[2018-11-29] MEDS ORDERED: ATORVASTATIN CA 40 MG TABLET (FP) PO SCH ×2 (22:00)
[2018-11-30] MEDS ORDERED: KETOROLAC TROMETHAMINE 30 MG/1 ML VIAL IVPUSH ONE (00:30)
[2018-11-30] MEDS: LACTATED RINGERS SOLUTION 1,000 ML/1,000 ML INFUS.BAG IV SCH (00:38)
[2018-11-30] MEDS: AMPICILLIN NA/SULBACTAM NA 3 GM in SODIUM CHLORIDE 100 ML IVPB SCH ×3 (02:49→08:55)
[2018-11-30 07:48] LABS: BILIRUBIN,TOTAL 0.5 mg/dL (0.2-1); BLOOD UREA NITROGEN 8.4 mg/dL (7-18); CALCIUM 8.9 mg/dL (8.5-10.1); CREATININE 0.6 mg/dL (0.55-1.3); MAGNESIUM 2.2 mg/dL (1.8-2.4); POTASSIUM 3.8 mmol/L (3.5-5.1); TOT PROT 5.9 g/dl (6.4-8.2)
[2018-11-30 08:01] LABS: BASO % 0.1 % (0-2.0); EOS % 0.1 % (0-4.5); HEMATOCRIT 35.5 % (32.4-45.2); LYMPH % 10.7 % (8-40); MCH 31.9 pg (25.7-33.7); MCHC 33.9 g/dl (32.0-36.0); MEAN PLT VOLUME 9.7 fl (7.5-11.1); MONO % 5.7 % (3.8-10.2); NEUT % 83.4 % (42.8-82.8); PLATELET COUNT 170 K/MM3 (134-434); RBC 3.77 M/mm3 (3.60-5.2); RDW 13.5 % (11.6-15.6); WHITE BLOOD COUNT 5.9 K/mm3 (4.0-10.0)
--- NOTE | 2018-11-30 08:08 | PN ---
Progress Note, Physician History of Present Illness: The patient is a 57 year old female with a PMH of TIA who presents with acute onset of abdominal pain. Pain started at 10 p.m. yesterday evening and is sharp , especially prominent in her epigastric and RUQ and associated with multiple episodes of emesis. No fevers/chills. Last BM around 6 or 7 p.m. yesterday evening and was watery, non-bloody. Last PO intake at 7 p.m. No prior h/o abdominal surgeries. - Current Medication List Current Medications: Active Medications Aspirin (Ecotrin -) 81 mg PO DAILY [facility] Atorvastatin Calcium (Lipitor -) 40 mg PO HS [facility] Last Admin: 11/29/18 21:09 Dose: 40 mg Carvedilol (Coreg -) 3.125 mg PO BID [facility] Last Admin: 11/29/18 21:09 Dose: 3.125 mg Chlorthalidone (Hygroton -) 25 mg PO DAILY [facility] Cholecalciferol (Vitamin D3 -) 1,000 unit PO DAILY [facility] Ampicillin Sodium/Sulbactam (Sodium 3 gm/ Sodium Chloride) 100 mls @ 200 mls/ hr IVPB Q6H-IV [facility] Last Admin: 11/30/18 02:49 Dose: 200 mls/hr Lactated Ringer's (Lactated Ringers Solution) 1,000 ml in 1,000 mls @ 125 mls/ hr IV ASDIR [facility] Last Admin: 11/30/18 00:38 Dose: 125 mls/hr Losartan Potassium (Cozaar -) 100 mg PO DAILY [facility] Metoclopramide HCl (Reglan Injection -) 10 mg IVPUSH Q8H PRN PRN Reason: NAUSEA AND/OR VOMITING Ondansetron HCl (Zofran Injection) 8 mg IVPB Q6H PRN PRN Reason: NAUSEA - Objective Vital Signs: Vital Signs Temperature 98.1 F 11/30/18 06:22 Pulse Rate 55 L 11/30/18 06:22 Respiratory Rate 11/30/18 06:22 Blood Pressure 132/64 11/30/18 06:22 O2 Sat by Pulse Oximetry (%) 98 11/29/18 22:00 Labs: CBC, BMP 11/30/18 06:50 INR, PTT INR 1.03 (0.83-1.09) 11/28/18 07:28 Problem List - Problems (1) Prophylactic measure Code(s): Z29.9 - ENCOUNTER FOR PROPHYLACTIC MEASURES, UNSPECIFIED (2) Gallbladder disease Code(s): K82.9 - DISEASE OF GALLBLADDER, UNSPECIFIED (3) Hypertension Code(s): I10 - ESSENTIAL (PRIMARY) HYPERTENSION Qualifiers: Hypertension type: essential hypertension Qualified Code(s): I10 - Essential (primary) hypertension (4) Hyperlipidemia Code(s): E78.5 - HYPERLIPIDEMIA, UNSPECIFIED Qualifiers: Hyperlipidemia type: unspecified Qualified Code(s): E78.5 - Hyperlipidemia , unspecified Impression/Plan Impression/Plan: Imaging - Results Cat Scan: Report Reviewed ( Impression: Abnormal gallbladder with stones including a Stone in neck. No definitive secondary signs of cholecystitis. Additional evaluation is needed as well as clinical correlation. Hepatosplenomegaly with a significantly fatty liver and pericholecystic sparing. ) Problem List - Problems (1) Prophylactic measure Assessment/Plan: FEN NPO for possible OR May resume post surgical a low fat/cholesterol diet nutrition counseling IVF when NPO monitor electrolytes Code(s): Z29.9 - ENCOUNTER FOR PROPHYLACTIC MEASURES, UNSPECIFIED (2) Gallbladder disease Code(s): K82.9 - DISEASE OF GALLBLADDER, UNSPECIFIED (3) Hypertension Assessment/Plan: hypertensive on admission secondary to pain continue home doses of coreg and losartan Code(s): I10 - ESSENTIAL (PRIMARY) HYPERTENSION (4) Hyperlipidemia Assessment/Plan: maintain home dose of lipitor Code(s): E78.5 - HYPERLIPIDEMIA, UNSPECIFIED (5) Acalculous cholecystitis Assessment/Plan: large stone seen on POCUS in [place] surgery consult by Dr Reese plan for OR tomorrow for cholecyctectomy NPO after mn Code(s): K81.9 - CHOLECYSTITIS, UNSPECIFIED Assessment/Plan Medical Decision Making - Medical Decision Making 11/28/18 09:29 RUQ US concerning for calculous cholecystitis. Surgery called but the on-call provider is in the OR. The Pt is unsafe for discharge at this time. They require further hospital observation, workup, and treatment. She has already received antibiotics (Unasyn). Microblog sent to [facility] for admission. Blank decision to admit order was already placed before shift change. 11/28/18 09:34 I spoke with Jaun Alvarez, coming to see the patient, admitted to Dr. Sousa. Visit type - Emergency Visit Emergency Visit: Yes ED Registration Date: 11/28/18 Care time: The patient presented to the Emergency Department on the above date and was hospitalized for further evaluation of their emergent condition. - New Patient This patient is new to me today: Yes Date on this admission: 11/28/18 - Critical Care Critical Care patient: No
[2018-11-30] MEDS ORDERED: traMADol HCL 50 MG TABLET PO PRN (08:39)
[2018-11-30] MEDS ORDERED: KETOROLAC TROMETHAMINE 30 MG/1 ML VIAL IM ONE (08:39)
[2018-11-30] MEDS ORDERED: PT OWN MED DRAWER 7, Y5N ONE (08:48)
[2018-11-30] MEDS: CARVEDILOL 3.125 MG TABLET (FP) PO SCH (09:02)
[2018-11-30 09:05] VITALS: BP 125/59; PULSE 65; TEMP 97.7
[2018-11-30] MEDS ORDERED: LOSARTAN POTASSIUM 50 MG TABLET (FP) PO SCH (10:00)
[2018-11-30] MEDS ORDERED: CHLORTHALIDONE 25 MG TABLET PO SCH (10:00)
[2018-11-30] MEDS ORDERED: ASPIRIN COATED 81 MG TABLET.EC PO SCH (10:00)
[2018-11-30] MEDS ORDERED: CHOLECALCIFEROL (VIT D3) 1,000 UNIT (25 MCG) TABLET PO SCH (10:00)
--- NOTE | 2018-11-30 11:42 | PROC ---
Procedure Note Procedure: Anesthesia post op note POS#1 S/P Lap cholecystectomy. Par seen and examined. VSS. No apparent post anesthesia complications.
--- NOTE | 2018-11-30 14:07 | DS ---
Physical Examination Vital Signs: Vital Signs Temperature 97.7 F 11/30/18 09:04 Pulse Rate 65 11/30/18 09:04 Respiratory Rate 20 11/30/18 09:04 Blood Pressure 125/59 L 11/30/18 09:04 O2 Sat by Pulse Oximetry (%) 98 11/29/18 22:00 Constitutional: Yes: Well Nourished, No Distress, Calm Eyes: Yes: WNL, Conjunctiva Clear, EOM Intact HENT: Yes: WNL, Atraumatic, Normocephalic Neck: Yes: WNL, Supple, Trachea Midline Cardiovascular: Yes: WNL, Regular Rate and Rhythm Respiratory: Yes: WNL, Regular, CTA Bilaterally Gastrointestinal: Yes: WNL, Normal Bowel Sounds, Soft, Tenderness ...Rectal Exam: Yes: Deferred Renal/: Yes: WNL Musculoskeletal: Yes: WNL Extremities: Yes: WNL Edema: No Peripheral Pulses WNL: Yes Integumentary: Yes: WNL Wound/Incision: Yes: Clean/Dry, Dressing Dry and Intact Neurological: Yes: WNL, Alert, Oriented ...Motor Strength: WNL Psychiatric: Yes: WNL, Alert, Oriented Labs: CBC, BMP 11/30/18 06:50 11/30/18 06:50 Discharge Summary Reason For Visit: CALCULUS OF GALLBLADER W CHOLECYSTITIS Current Active Problems Gallbladder calculus with acute cholecystitis (Acute) Gallbladder disease (Acute) Head ache (Acute) Hyperlipidemia (Acute) Hypertension (Acute) Prophylactic measure (Acute) Hospital Course: Patient underwent a Laparoscopic Cholecystectomy Findings: large distended gallbladder, large stone in fudus, edema noted in the wall on dissection from the liver bed. No intraoperative complications. Post operatively laproscope sites are CDI. Minimal to moderate pain releived with tramadol. Tolerating regular diet. Post-op antibiotics completed. Patient to follow up with Dr Fuller in 2 weeks. Condition: Improved - Instructions Diet, Activity, Other Instructions: Postoperative instructions: You had a laparoscopic cholecystectomy on 11/29/[address] Kana Reese of [facility]. Activity: Resume your usual activities gradually, but no heavy exertion or lifting more than 10-15 pounds for 1 month. Remove dressings 48 hours after surgery; sticky tapes underneath will fall off by themselves. You may shower daily starting then, just pat the incision areas dry. No bath or swimming until skin incisions have healed. Eat lightly at first, but advance to your usual diet as tolerated. Pain: For pain, you may use and alternate Tylenol (acetaminophen) 1-2 pills and/ or ibuprofen 200 mg (1-3 pills) every 6 hours each as needed; this means that you can take one OR the other at 3-hour intervals. If you are prescribed a Tylenol/narcotic combination for severe pain, use it instead of plain Tylenol as needed and switch back when your pain starts decreasing. Do not take more than 4000mg of acetaminophen in a day. Take medications as prescribed or indicated on the labeling. Follow-up: Call Dr. Reese' office at [phone] to make your postop appointment (Tuesday in approximately 2 weeks after surgery). Clinic is held in the Diagnostic [facility] on the first floor of [facility]. Call the office if you have: * increasing pain not responsive to pain medication * fever of 101F or higher * vomiting * unusual or increasing bleeding or drainage from wounds * increasing redness or swelling at wound sites * inability to urinate Also, see your primary medical doctor within 1-2 weeks. - Home Medications Comprehensive Discharge Medication List: Ambulatory Orders RX: Carvedilol [Coreg -] 3.125 mg PO BID 07/21/18 RX: Chlorthalidone 25 mg PO DAILY 07/21/18 RX: Cholecalciferol (Vitamin D3) [Vitamin D -] 1,000 unit PO DAILY 07/21/18 RX: Losartan Potassium [Cozaar] 100 mg PO DAILY 07/21/18 RX: Aspirin Coated [Ecotrin -] 81 mg PO DAILY #30 tablet.ec 07/24/18 RX: Atorvastatin Ca [Lipitor] 40 mg PO HS #30 tablet 07/24/18 RX: traMADol HCL [Ultram -] 50 mg PO Q6H PRN #20 tablet MDD 4 11/30/18 This patient is new to me today: No Emergency Visit: Yes ED Registration Date: 11/28/18 Care time: The patient presented to the Emergency Department on the above date and was hospitalized for further evaluation of their emergent condition. Critical Care patient: No - Discharge Referral Referred to [facility] Med P.C.: No
[2018-11-30 14:16] VITALS: BMI 40.1
--- NOTE | 2018-12-01 11:25 | OP ---
DATE OF OPERATION: 11/29/2018 PREOPERATIVE DIAGNOSIS: Acute on chronic cholecystitis. POSTOPERATIVE DIAGNOSIS: Acute on chronic cholecystitis. PROCEDURE: Laparoscopic cholecystectomy. ATTENDING SURGEON: Kana Reese MD RETAIL GENERAL MANAGER: Mario Britton MD ANESTHESIOLOGIST: Polina Granger MD ANESTHESIA TYPE: General with local. Local consisted of 0.5% Marcaine, a total of 10 mL given at the port sites. ESTIMATED BLOOD LOSS: 15 mL. INTRAVENOUS FLUID ADMINISTERD: 1000 mL. SPECIMEN: Gallbladder with stones. BRIEF INDICATIONS: Patient had a large distended gallbladder, a large stone at the fundus measuring approximately 2.5 cm. Edema was noted on the liver and the liver bed upon dissection. INDICATIONS: Patient is a 57-year-old with history of acute on chronic cholecystitis, biliary colic, no elevation of white count. She was counseled regarding risks, benefits, and alternatives of surgical cholecystectomy, signed informed consent, and was taken to the procedure. DESCRIPTION OF PROCEDURE: The patient was brought to the operating room. She was placed in supine position on the operating table. Lower extremities had SCDs placed to compression. Patient was induced with general anesthesia. She was endotracheally intubated. She received prophylactic antibiotics prior to the start of surgery according to the SCIP protocol. Anterior abdominal wall was clipped, prepped, and draped in standard surgical fashion. Her abdomen was obese, and additional padding was placed for adequate position. After a formal time-out identifying the operative site and procedure, we began first with supraumbilical Carmita approach to the abdomen. It was incised with a 15-blade scalpel, deepened and widened through subcutaneous tissue. The anterior fascia of the midline rectus was retracted in the surgical field and then entered bluntly with a clamp. A 12-mm Carmita port was installed into the abdomen and pneumoperitoneum was established to 50 mmHg. Upon establishing a pneumoperitoneum, the entry site was inspected, appeared to be atraumatic. The liver border and gallbladder was inspected with the laparoscope, and additional port sites were installed at the subxiphoid position as well as at the right abdomen in 2 places, 5-mm trocars. With this done, the dome of the gallbladder was retracted cranially and towards the left shoulder identifying the fundus. The fundus was retracted towards the left shoulder identifying the infundibulum of the gallbladder, which was then retracted towards the right side of the abdomen exposing the cystic structures. A 30-degree scope was then manipulated to allow for dissection and creation of a plane of the cystic structures. The plane was developed with a [place] clamp, and then, the cystic structure was transected after it was controlled proximally and distally with 5-mm clips. After applying the clips and the cystic duct transection, we then explored the area for the cystic artery. The cystic artery itself was then controlled with additional 5-mm clips and transected. The gallbladder was then elevated from the liver bed using Bovie cautery. This was done from the cystic structures towards the dome of the gallbladder carefully with no violation of the liver capsule itself. Once removed from the liver itself, the gallbladder was retrieved from the umbilical port using an EndoCatch bag 10 mm from the umbilical port resighting the camera to the subxiphoid position. After removing the gallbladder, it was passed off for pathological diagnosis, there appeared to be a large stone, which was palpable approximately 2.5 cm at the dome. The port sites were then removed under direct visualization after hemostasis was obtained using Bovie cautery on the liver bed, and the pneumoperitoneum was relieved. The trocar at the umbilicus, the 12-mm Carmita, was closed with 0 Vicryl in figure-of-8 fashion to ablated space. Once tied, port sites were irrigated, and the skin was closed using 4-0 Vicryl. The patient had sterile dressings placed including Steri-Strips, Benzoin, and gauze sponges with Tegaderm. Patient was awoken from general anesthesia having tolerated procedure well. Instrument counts were correct prior to the closure of the abdomen. MD YIFAN Vergara/[id number]
--- NOTE | 2018-12-01 16:54 | PATH ---
Surgical Pathology Report Patient Name: AUSTIN JOHNSON [facility]. Rec. #: [id number] /Age/Gender: 1960 (Age: 57) / F Account: [id number] Location: [address] [place] [address]/[facility] Taken: 11/29/2018 Received: 11/30/2018 Reported: 12/01/2018 Physicians: Kana Reese M.D. PHYSICIAN EMERGENCY DEPT Specimen(s) Received GALLBLADDER AND STONES Clinical History Acute and chronic cholecystitis Final Diagnosis GALLBLADDER WITH STONES, LAPAROSCOPIC CHOLECYSTECTOMY: FOCAL ACUTE AND CHRONIC CHOLECYSTITIS WITH CHOLELITHIASIS. Electronically Signed Luz Marina Altamirano M.D. Gross Description Received in formalin, labeled "gallbladder with gallstones," is a 10.0 x 3.5 x 3.3 cm. gallbladder with a 0.2 cm. in length portion of cystic duct attached. The outer surface is bueno-pink and varies from smooth to shaggy. The lumen contains brown, sludgelike bile as well as abundant yellow, irregular to fragmented choleliths ranging from 0.1-3.8 cm in greatest dimension. The mucosa is bueno-green and eroded. The wall of the gallbladder ranges from 0.1-0.4 cm. in thickness. Sock Knitting Machine Operator sections are submitted in one cassette. /11/30/2018 [facility]11/30/2018
== END 2018-11-30 14:47 | disposition home or self-care (01) | DRG 263 ==
LOC: JER 02:56 → JERBED 06:56 → J6S 15:55 → UNDODISIN 11-30 14:08
PROVIDERS: ATTEND Nurse Practitioner Acute Care
PROC: 0FT44ZZ Resection of Gallbladder, Percutaneous Endoscopic Approach (ICD-10-PCS; principal; 2018-11-29 14:00)
DX: K80.66 Calculus of gallbladder and bile duct with acute and chronic cholecystitis without obstruction (principal); I10 Essential (primary) hypertension; E78.5 Hyperlipidemia, unspecified; Z86.73 Personal history of transient ischemic attack (TIA), and cerebral infarction without residual deficits; R51 Headache
CPT/HCPCS: 36415; 71045-TC-FY; 74178-TC; 76705-TC; 80053; 81003; 82150; 82550; 82962; 83690; 83735; 84484; 85025; 85610; 85730; 86850; 86900; 86901; 87086; 88304-TC; 93005; 93010; 94760; 99284-25; J0131; J7030

== ENCOUNTER 2020-03-07 04:45 | Day surgery (SDC) | payer OTHER ==
[2020-03-05 13:09] VITALS: BMI 37.8
--- OUTSIDE RECORDS SUMMARY | 2020-03-07 04:53 | XMS ---
:1960 Author Organization [facility] Support Name Relationship Address Phone [employer] Unavailable [address] [phone] [place] [address] [address] [place] [address] GEORGE LOPES DAUGHTER [address] [phone] [place] [address] Care Team Providers Name Role Phone Wilman Rico Unavailable Wilman Rico Unavailable Re-disclosure Warning The records that you are about to access may contain information from federally- assisted alcohol or drug abuse programs. If such information is present, then the following federally mandated warning applies: This information has been disclosed to you from records protected by federal confidentiality rules (42 CFR part 2). The federal rules prohibit you from making any further disclosure of this information unless further disclosure is expressly permitted by the written consent of the person to whom it pertains or as otherwise permitted by 42 CFR part 2. A general authorization for the release of medical or other information is NOT sufficient for this purpose. The Federal rules restrict any use of the information to criminally investigate or prosecute any alcohol or drug abuse patient.The records that you are about to access may contain highly sensitive health information, the redisclosure of which is protected by Article 27-F of the [facility] Public Health law. If you continue you may haveaccess to information: Regarding HIV / AIDS; Provided by facilities licensed or operated by the [facility] Office of Mental Health; or Provided by the [facility] Office for People With Developmental Disabilities. If such information is present, then the following [facility] mandated warning applies: This information has been disclosed to you from confidential records which are protected by state law. State law prohibits you from making any further disclosure of this information without the specific written consent of the person to whom it pertains, or as otherwise permitted by law. Any unauthorized further disclosure in violation of state law may result in a fine or fpc sentence or both. A general authorization for the release of medical or other information is NOT sufficient authorization for further disclosure. Encounters Encounter Providers Location Date Indications Data Source(s ) Attender: Wilman 02/20/2020 [facility] ([facility] 12:00:00 AM EDT [facility]) Office Insurance Providers Payer name Policy type Policy ID Covered Covered green party's Policy P darell / Coverage green party ID relationship to [place] Inf ormation type helms [facility] MEDICAID [id number] SP [id number] [address] [id number] 1 [id number] [facility] MEDICAID [id number] SP [id number] COMM PLAN Problems, Conditions, and Diagnoses Code Display Name Description Problem Type Effective Dates Data Source(s) M47.816 Spondylosis SPONDYLOSIS Problem 02/20/[address] [facility] ([address] [facility] 12:00:00 AM EDT [facility], myelopathy or MYELOPATHY OR PC) radiculopathy, RADICULOPATHY, lumbar region LUMBAR REGION Surgeries/Procedures Procedure Description Date Indications Data Source(s) Documentation of current 02/20/2020 [facility] ([facility] ([facility]) 12:00:00 AM EDT [facility]) Documentation of current 02/20/2020 [facility] ([facility] (procedure) 12:00:00 AM EDT M edical, PC) Documentation of current 02/20/2020 [facility] ([facility] (procedure) 12:00:00 AM EDT M edical, PC) Documentation of current 02/20/2020 [facility] ([facility] (procedure) 12:00:00 AM EDT M ed[facility], PC) Results ID Date Data Source [id number] 03/02/2020 09:10:00 AM EDT [facility] Name Value Range Interpretation Description Data Sup porting Code Source(s) Document(s ) SARS [facility] coronavirus 2 RNA This lab was ordered by [facility] and reported by [facility]. ID Date Data Source [id number] 02/24/2020 11:17:00 AM EDT [facility] Name Value Range Interpretation Description Data Sup porting Code Source(s) Document(s ) SARS [facility] coronavirus 2 RNA This lab was ordered by [facility] and reported by [facility]. ID Date Data Source [id number] 09/30/2019 12:00:00 AM EDT [facility] Name Value Range Interpretation Code Description Data Kristal rce(s) Supporting Document(s ) 2018-nCoV [facility] RNA XXX IRINA+probe- Imp This lab was ordered by [facility] [employer] and reported by [employer] ID Date Data Source [id number] 09/22/2019 12:00:00 AM EDT [facility] Name Value Range Interpretation Code Description Data Kristal rce(s) Supporting Document(s ) nCoV [facility] RNA XXX IRINA+probe- Imp This lab was ordered by [facility] [employer] and reported by [employer] Procedure Social History Code Duration Value Status Description Data Source(s ) Smoking 02/21/2020 Social drinker completed Social drinker non M [facility] (St 12:00:00 AM EDT non smoker No smoker No [facility] Born: Born: [facility] [place] Smoking 02/21/2020 Unknown if ever completed Unknown if ever [facility] (St 12:00:00 AM EDT smoked smoked [facility]) Vital Signs ID Date Data Source UNK Name Value Range Interpretation Code Description Data Source(s) Heart rate 57 /min 57 /min [facility] ([facility] , ) Respiratory rate 15 /min 15 /min [facility] ( [facility]) Inhaled oxygen 99 % 99 % [facility] ([facility], ) Body mass index 43.7 kg/m2 43.7 kg/m2 [facility] ([facility] t (BMI) [Ratio] [facility] [place] Diastolic blood 80 mm[Hg] 80 mm[Hg] [facility] (S t pressure [facility]) Systolic blood 139 mm[Hg] 139 mm[Hg] [facility] ([facility] , ) Body weight 239 lb 239 lb [facility] ([facility]) Body height 62 in 62 in [facility] ([facility] , PC)
[2020-03-07 06:30] VITALS: TEMP 97.8
[2020-03-07] MEDS ORDERED: DEXAMETHASONE SOD PHOSPHATE/PF 10 MG/ML SDV ONE (07:18)
[2020-03-07] MEDS ORDERED: TRIAMCINOLONE ACET 40MG/1ML VIAL ONE (07:18)
[2020-03-07] MEDS ORDERED: BUPIVACAINE HCL 50 ML ONE (07:19)
[2020-03-07] MEDS ORDERED: LIDOCAINE HCL/PF 1% SDV 5ML VIAL ONE (07:19)
[2020-03-07] MEDS ORDERED: BUPIVACAINE HCL/PF 0.75% 10 ML VIAL ONE (07:20)
--- NOTE | 2020-03-07 08:36 | HP ---
Admitting History and Physical - Admission Chief Complaint: Low back pain History of Present Illness: Pt complains of axial low back pain History Source: Patient - Past Medical History REGULATORY LAW SPECIALIST: Yes: TIA Cardiovascular: Yes: HTN, Hyperlipdemia Hepatobiliary: Yes: Cholelithiasis - Past Surgical History Past Surgical History: Yes: Tubal Ligation (20 years ago) - Smoking History Smoking history: Never smoked Have you smoked in the past 12 months: No Aproximately how many cigarettes per day: 0 - Alcohol/Substance Use Hx Alcohol Use: Yes (social) History of Substance Use: reports: None - Social History ADL: Independent History of Recent Travel: No Home Medications - Allergies Allergies/Adverse Reactions: Allergies Allergy/AdvReac Type Severity Reaction Status Date / Time egg Allergy Severe Verified 02/28/20 15:51 - Home Medications Home Medications: Ambulatory Orders Chlorthalidone 25 mg PO DAILY 07/21/18 Aspirin Coated [Ecotrin -] 81 mg PO DAILY #30 tablet.ec 07/24/18 Amlodipine Besylate 5 mg PO DAILY 03/07/20 Carvedilol 6.25 mg PO BID 03/07/20 Enalapril Maleate 20 mg PO DAILY 03/07/20 Montelukast Na [Singulair -] 10 mg PO DAILY 03/07/20 Omeprazole 40 mg PO DAILY 03/07/20 Review of Systems - Review of Systems Constitutional: reports: No Symptoms Eyes: reports: No Symptoms HENT: reports: No Symptoms Neck: reports: No Symptoms Cardiovascular: reports: No Symptoms Respiratory: reports: No Symptoms Gastrointestinal: reports: No Symptoms Genitourinary: reports: No Symptoms Breasts: reports: No Symptoms Reported Musculoskeletal: reports: Back Pain Physical Examination Vital Signs: Vital Signs Temperature 97.8 F 03/07/20 06:30 Pulse Rate 66 03/07/20 06:30 Respiratory Rate 20 03/07/20 06:30 Blood Pressure 131/80 03/07/20 06:30 O2 Sat by Pulse Oximetry (%) 99 03/07/20 06:30 Constitutional: Yes: Well Nourished, No Distress, Calm Eyes: Yes: Conjunctiva Clear, EOM Intact HENT: Yes: Atraumatic, Normocephalic Neck: Yes: Supple, Trachea Midline Cardiovascular: Yes: Regular Rate and Rhythm Respiratory: Yes: Regular, CTA Bilaterally Musculoskeletal: Yes: Back Pain Extremities: Yes: WNL Imaging - Results X-ray: Report Reviewed, Image Reviewed Assessment/Plan The patients pain is secondary to lumbar spondylosis. I will perform diagnostic lumbar medial branch blocks.
[2020-03-07] MEDS ORDERED: BUPIVACAINE HCL/PF 0.75% 10 ML VIAL NR ONE (09:09)
[2020-03-07] MEDS ORDERED: LIDOCAINE HCL 1% PRESERVATIVE FREE - 30ML VIAL IJ ONE (09:09)
[2020-03-07] MEDS ORDERED: IOHEXOL 180 MG/1 ML ML IJ ONE (09:09)
[2020-03-07 10:52] VITALS: BP 120/74; PULSE 61
--- NOTE | 2020-03-10 22:19 | PROC ---
Procedure Note Procedure: Pre procedure Diagnosis: Lumbar Spondylosis Post Procedure Diagnosis: same Anesthesia: Local Procedure Performed: Right and Left L3 L4 L5 Medial Branch Blocks under Fluoroscopic Guidance Procedure: After the risks and benefits were explained, informed consent was obtained. The patient was then taken to the procedure room and positioned prone on the procedure table. Time out was performed. The region overlying the appropriate vertebral bodies was identified using fluoroscopy. The skin was prepped and draped in the usual sterile fashion. The skin and soft tissues were anesthetized using 1% lidocaine. Using fluoroscopic guidance, 22 gauge 3.5 inch spinal needles were then introduced to the juncture of the superior articular processes and the transverse processes of the RIGHT L3, L4, and L5 medial branches are located. Omnipaque 180 confirmed appropriate needle placement. There was no epidural or vascular flow observed. .75% bupivacaine was drawn into a syringe. 0.5cc of this solution was then injected at each level. The same procedure was repeated on the LEFT side at the same levels. The patient tolerated the procedure well and there were no complications. The patient was taken to the post procedure recovery area in good condition. Vital signs remained stable before, and after the procedure. The patient was given oral follow-up instructions.The patient was givena follow up appointment with me in the near future. Wilman Rico D.O.
== END 2020-03-07 10:30 | disposition home or self-care (01) ==
LOC: JASU-SURG 04:45
PROVIDERS: ATTEND Pain Medicine Pain Medicine
PROC: BR16YZZ Fluoroscopy of Lumbar Facet Joint(s) using Other Contrast (ICD-10-PCS; 2020-03-07)
PROC: 3E0T3BZ Introduction of Anesthetic Agent into Peripheral Nerves and Plexi, Percutaneous Approach (ICD-10-PCS; principal; 2020-03-07 08:45)
DX: M47.896 Other spondylosis, lumbar region (principal)
CPT/HCPCS: 76000-TC-FY

== ENCOUNTER 2020-12-04 10:03 | Emergency (ER) | payer OTHER ==
[2020-12-04 10:21] VITALS: BMI 38.9
[2020-12-04 11:28] LABS: BASO % 0.4 % (0-2.0); EOS % 3.2 % (0-4.5); HEMATOCRIT 39.8 % (32.4-45.2); HEMOGLOBIN 13.5 GM/dL (10.7-15.3); LYMPH % 16.3 % (8-40); MCH 32.6 pg (25.7-33.7); MCHC 33.9 g/dl (32.0-36.0); MEAN CELL VOLUME 96.1 fl (80-96); MEAN PLT VOLUME 9.3 fl (7.5-11.1); MONO % 9.4 % (3.8-10.2); NEUT % 70.7 % (42.8-82.8); PLATELET COUNT 169 10^3/uL (134-434); RBC 4.14 M/mm3 (3.60-5.2); RDW 14.7 % (11.6-15.6); WHITE BLOOD COUNT 5.3 K/mm3 (4.0-10.0)
[2020-12-04 11:34] LABS: INR 0.98 (0.83-1.09); PROTHROMBIN TIME (PATIENT) 11.9 SEC (9.7-13.0)
[2020-12-04 11:37] LABS: ACTIVATED PTT 25.6 SECONDS (25.2-36.5)
[2020-12-04 11:50] LABS: CHLORIDE 108 mmol/L (98-107); SODIUM 140 mmol/L (136-145)
[2020-12-04 11:52] LABS: ALBUMIN 3.6 g/dl (3.4-5.0); ANION GAP 6 MMOL/L (8-16); BLOOD UREA NITROGEN 15.1 mg/dL (7-18); CALCIUM 8.3 mg/dL (8.5-10.1); CO2 25 mmol/L (21-32); GLUCOSE,RANDOM 110 mg/dL (74-106)
[2020-12-04 11:55] LABS: SGOT/AST 28 U/L (15-37)
[2020-12-04 11:55] LABS: TRIGLYCERIDES 63 mg/dL (0-150)
[2020-12-04 11:56] LABS: CHOLESTEROL 192 mg/dL (50-200); LDL CHOLESTEROL (ONLY SJRH) 75 mg/dL (5-100)
[2020-12-04 11:56] LABS: BILIRUBIN,TOTAL 0.5 mg/dL (0.2-1); TOT PROT 6.7 g/dl (6.4-8.2)
[2020-12-04 11:58] LABS: HDL CHOLESTEROL 95 mg/dL (40-60)
[2020-12-04 11:58] LABS: ALK PHOS 97 U/L (45-117)
[2020-12-04 12:01] LABS: CREATININE 0.6 mg/dL (0.55-1.3); SGPT/ALT 40 U/L (13-61)
[2020-12-04 13:11] LABS: PH,URINE 5.5 (5.0-8.0); URINE APPEARANCE CLEAR; URINE BILIRUBIN NEGATIVE (NEGATIVE); URINE COLOR YELLOW; URINE GLUCOSE (UA) NEGATIVE (NEGATIVE); URINE KETONE NEGATIVE (NEGATIVE); URINE LEUK ESTERASE NEGATIVE (NEGATIVE); URINE NITRITE NEGATIVE (NEGATIVE); URINE PROTEIN NEGATIVE (NEGATIVE); URINE UROBILINOGEN 0.2 mg/dL (0.2-1.0)
[2020-12-04 13:36] VITALS: BP 155/62; PULSE 63; TEMP 98.3
== END 2020-12-04 13:37 | disposition home or self-care (01) ==
LOC: JER 10:03
DX: R05 Cough (principal); R20.2 Paresthesia of skin
CPT/HCPCS: 36415; 70450-TC; 71045-TC-FY; 80053; 80061; 81003; 82550; 83721; 84484; 85025; 85610; 85730; 86850; 86900; 86901; 93005; 93010; 99284-25; C9803; U0003; U0005

== ENCOUNTER 2021-10-27 04:27 | Day surgery (SDC) | payer OTHER ==
[2021-10-23 12:46] VITALS: BMI 38.6
[2021-10-27] MEDS ORDERED: MIDAZOLAM HCL 2 MG/2 ML SINGLE DOSE VIAL ONE (12:39)
[2021-10-27] MEDS ORDERED: FENTANYL CITRATE/PF 50 MCG/ML VIAL ONE ×3 (12:39→15:03)
[2021-10-27] MEDS ORDERED: PROPOFOL 20 ML ONE (12:40)
[2021-10-27] MEDS ORDERED: DEXAMETHASONE SOD PHOSPHATE 4 MG/1 ML VIAL ONE (13:18)
[2021-10-27] MEDS ORDERED: ceFAZolin SODIUM 1 GM VIAL ONE (13:24)
[2021-10-27] MEDS ORDERED: ceFAZolin SODIUM 1 GM VIAL IVPB ONE (13:24)
[2021-10-27] MEDS ORDERED: IOHEXOL 300 MG/ML INFUS..BTL IJ ONE ×2 (13:26→13:47)
[2021-10-27] MEDS ORDERED: FENTANYL CITRATE/PF 50 MCG/ML VIAL IVPUSH PRN (13:56)
[2021-10-27] MEDS ORDERED: oxyCODONE HCL 5 MG TABLET PO PRN (13:56)
[2021-10-27] MEDS ORDERED: ONDANSETRON 4 MG/2 ML VIAL IVPUSH PRN (13:56)
[2021-10-27] MEDS ORDERED: LACTATED RINGERS SOLUTION 1,000 ML IV SCH (14:00)
[2021-10-27 17:28] VITALS: BP 116/60; PULSE 79; TEMP 98
== END 2021-10-27 17:45 | disposition home or self-care (01) ==
LOC: JASU-SURG 04:27
PROVIDERS: ATTEND Urology
PROC: 0TP98DZ Removal of Intraluminal Device from Ureter, Via Natural or Artificial Opening Endoscopic (ICD-10-PCS; principal; 2021-10-27 11:00)
PROC: BT1FYZZ Fluoroscopy of Left Kidney, Ureter and Bladder using Other Contrast (ICD-10-PCS; 2021-10-27 11:00)
DX: T83.122A Displacement of indwelling ureteral stent, initial encounter (principal); N23 Unspecified renal colic; N13.30 Unspecified hydronephrosis
CPT/HCPCS: 76000-TC-FY; 87086; 88300-TC; 94760

== ENCOUNTER 2022-05-16 11:24 | Emergency (ER) | payer OTHER ==
[2022-05-16 11:29] VITALS: BP 171/79; PULSE 73; RESP 18; TEMP 98.2; BMI 36.1
[2022-05-16] MEDS ORDERED: ACETAMINOPHEN 500 MG TABLET (FP) PO ONE (12:36)
[2022-05-16] MEDS ORDERED: METHOCARBAMOL 500 MG TABLET PO ONE (12:36)
[2022-05-16] MEDS ORDERED: ACETAMINOPHEN 500 MG TABLET (FP) ONE (12:37)
[2022-05-16] MEDS ORDERED: METHOCARBAMOL 500 MG TABLET ONE (12:39)
== END 2022-05-16 13:12 | disposition home or self-care (01) ==
LOC: JERFT 11:24 → JER 11:24 → JERFT 13:12
DX: M25.512 Pain in left shoulder (principal); M79.621 Pain in right upper arm; M25.552 Pain in left hip
CPT/HCPCS: 73030-TC-LT-FY; 73060-TC-RT-FY; 73502-TC-LT-FY; 73521-TC-FY; 99285-25

== ENCOUNTER 2024-03-07 09:21 | Emergency (ER) | payer OTHER ==
[2024-03-07 09:40] VITALS: BP 166/84; PULSE 65; RESP 16; TEMP 97.9; BMI 37.8
[2024-03-07] MEDS ORDERED: KETOROLAC TROMETHAMINE 30 MG/1 ML VIAL ONE (09:52)
[2024-03-07] MEDS ORDERED: LIDOCAINE 4% PATCH TP ONE (09:52)
[2024-03-07] MEDS: LIDOCAINE 4% PATCH TP ONE (09:58)
[2024-03-07] MEDS: KETOROLAC TROMETHAMINE 30 MG/1 ML VIAL IM ONE (09:59)
== END 2024-03-07 10:26 | disposition home or self-care (01) ==
LOC: JERFT 09:21
PROC: 3E0133Z Introduction of Anti-inflammatory into Subcutaneous Tissue, Percutaneous Approach (ICD-10-PCS; principal; 2024-03-07)
DX: M75.31 Calcific tendinitis of right shoulder (principal)
CPT/HCPCS: 73030-TC-RT-FY; 99284-25